=== PATIENT | male | born 1940 | race Caucasian/White ===

== ENCOUNTER 2021-10-14 09:59 | Inpatient (IN) | payer MEDICARE, SELFPAY ==
[2021-10-14] VITALS (23 sets, daily range): BP systolic 84–125; BP diastolic 46–64; PULSE 79–98; RESP 18–32; TEMP 35.9–36.9; O2SAT 88–100; BMI 21.1
--- NOTE | ~2021-10-14 | XR_ITS ---
EXAMINATION: XR chest 1V portable INDICATION: Respiratory distress TECHNIQUE: Portable AP chest at 0522 hours COMPARISON: 10/15/2021 FINDINGS: Small bilateral pleural effusions, right greater than left, persist without significant miguelito nge. There are stable opacities of the mid and lower lung zones. There is no pneumothorax. The cardio mediastinal silhouette is stable. Small pleural effusions, stable. IMPRESSION: 1. Small pleural effusions, stable. 2. Stable opacities of the mid and lower lung zones, consistent with pulmonary edema and/or pneumonia and/or atelectasis. Reviewed, dictated and finalized at location A.
--- NOTE | ~2021-10-14 | CT_ITS ---
EXAMINATION: CT brain wo con INDICATION: Generalized weakness, sepsis COMPARISON: None TECHNIQUE: Standard unenhanced head CT. The dose-length product (DLP) was 681.00 mGy-cm. The mA was a djusted according to patient size. Iterative reconstruction technique was employed. FINDINGS: There is no acute intraparenchymal hemorrhage. No evidence of mass lesion. No evidence of a cute infarction. There is moderate periventricular and subcortical hypodensity probably related to sm all vessel ischemic disease. There is moderate prominence of the sulci and ventricles related to cere bral atrophy. Intracranial calcified cerebral atherosclerosis is noted. There are no extra-axial alex ections. There is no mass effect or midline shift. The orbits and soft tissues are unremarkable. The visualized sinuses and mastoid air cells are well aerated. IMPRESSION: 1. No acute intracranial abnormality. 2. Age related findings. Reviewed, dictated and finalized at location B.
--- NOTE | ~2021-10-14 | US_ITS ---
EXAMINATION: US venous doppler [facility] DATE: 10/15/2021 17:20 INDICATION: Respiratory abnormality, unspecified TECHNIQUE: Murphy scale images without and with compression and Doppler images of the bilateral lower e xtremity veins were obtained. COMPARISON: None FINDINGS: The right common femoral vein, profunda femoral vein, femoral vein, popliteal vein, peroneal trunk, p osterior tibial veins, and greater saphenous vein are patent. The left common femoral vein, profunda femoral vein, femoral vein, popliteal vein, peroneal trunk, po sterior tibial veins, and greater saphenous vein are patent. IMPRESSION: 1. Patent bilateral lower extremity veins. No evidence of deep venous thrombosis. Reviewed, dictated and finalized at location B. IMPRESSION: 1. Patent bilateral lower extremity veins. No evidence of deep venous thrombosi s.
--- NOTE | ~2021-10-14 | XR_ITS ---
EXAMINATION: XR chest 1V portable INDICATION: Hypoxia TECHNIQUE: Portable AP chest at 0525 hours COMPARISON: 10/17/2019 FINDINGS: There are moderate size right and small left pleural effusions. Airspace opacities of the m id and lower lung zones persist without significant change. There is no pneumothorax. The cardiomedia stinal silhouette is stable. IMPRESSION: 1. Moderate size right and small left pleural effusions. 2. Stable airspace opacities of the mid and lower lung zones, consistent with pulmonary edema and/or pneumonia and/or atelectasis. Reviewed, dictated and finalized at location A. IMPRESSION: 1. Moderate size right and small left pleural effusions. 2. Stable airspace opacities of the mid and lower lung zones, consistent with p ulmonary edema and/or pneumonia and/or atelectasis.
--- NOTE | ~2021-10-14 | XR_ITS ---
EXAMINATION: XR barium swallow modified DATE: 10/18/2021 09:17 INDICATION: Dysphagia TECHNIQUE: Modified barium esophagram was performed by myself to administered fluoroscopy, in conjun ction with speech pathologist who administered barium in varying consistencies as per speech patholog ist documentation. This was recorded on tape. A single fluoroscopic spot image was recorded. The DAP for this procedure was 2.5 Gycm2. Fluoroscopy exposure time was 4.0 minutes. FINDINGS: Oral stage: Adequate function. Pharyngeal phase: Adequate function. Laryngeal penetration: Inconsistently present within liquids. Aspiration: None. Laryngeal sensitivity: Present. IMPRESSION: Inconsistent laryngeal penetration with thin liquids. Please refer to speech pathologist findings and specific feeding recommendations. Reviewed, dictated and finalized at location A.
--- NOTE | ~2021-10-14 | XR_ITS ---
EXAMINATION: XR chest 2V DATE: 10/14/2021 10:54 INDICATION: Weakness and shortness of breath TECHNIQUE: AP and lateral views of the chest are obtained. COMPARISON: None available FINDINGS: Cardiomegaly is noted. There is a mild diffuse interstitial pattern. More focal airspace op acities are present in the lung bases. There are small pleural effusions. No pneumothorax is identifi ed. There is mild thoracic spondylosis. IMPRESSION: 1. Cardiomegaly with mild pulmonary edema. 2. Bibasilar airspace opacities, consistent with atelectasis versus pneumonia. 3. Small pleural effusions. Reviewed, dictated and finalized at location B.
--- NOTE | ~2021-10-14 | XR_ITS ---
EXAMINATION: XR chest 1V portable DATE: 10/15/2021 09:47 INDICATION: Respiratory distress TECHNIQUE: frontal view of the chest was obtained. COMPARISON: Chest radiograph dated 10/14/2021 FINDINGS: Again seen are small bilateral pleural effusions with associated basilar atelectasis. Persistent inte rstitial and airspace opacities in the bilateral mid and lower lung zones which could represent assoc iated pulmonary edema or pneumonia. No pneumothorax. The cardiomediastinal silhouette is within roberta l limits accounting for AP technique and some rightward rotation of the patient. Age indeterminate T1 1 compression fracture with mild vertebral body height loss. IMPRESSION: 1. Opacities in the bilateral mid and lower lung zones which could represent pulmonary edema or pneum onia. 2. Small bilateral pleural effusions with associated basilar atelectasis. Reviewed, dictated and finalized at location A. IMPRESSION: 1. Opacities in the bilateral mid and lower lung zones which could represent pu lmonary edema or pneumonia. 2. Small bilateral pleural effusions with associated basilar atelectasis.
--- NOTE | ~2021-10-14 | US_ITS ---
EXAMINATION: US renal BI DATE: 10/15/2021 17:20 INDICATION: Acute kidney injury TECHNIQUE: Multiple grayscale and Doppler ultrasound images of the kidneys were obtained. COMPARISON: None. FINDINGS: The right kidney measures 9.4 x 4.2 x 5.3 cm. The left kidney measures 10.0 x 4.3 x 4.9 cm. The kidneys demonstrate normal parenchymal echogenicity. There is no hydronephrosis. The bladder is decompressed by Newton catheter. IMPRESSION: 1. Normal kidneys without hydronephrosis. Reviewed, dictated and finalized at location B.
--- NOTE | 2021-10-14 10:19 | ECG_ITS ---
Measurements Intervals [place] Rate: 85 P: 57 NC: 140 QRS: -76 QRSD: 91 T: 19 QT: 375 QTc: 446 Interpretive Statements SINUS RHYTHM WITH SINUS ARRHYTHMIA INCOMPLETE RIGHT BUNDLE BRANCH BLOCK LOW QRS VOLTAGE IN LIMB LEADS LEFT ANTERIOR FASCICULAR BLOCK CONSIDER ANTERIOR INFARCT, AGE INDETERMINATE BASELINE ARTIFACT- AVL, AVF ABNORMAL ECG Electronically Signed On 10-14-2021 12:29:02 CDT by Adolfo Damon D.O.
[2021-10-14 10:35] LABS: Appearance Urine Cloudy (Clear); Bilirubin Urine 1+ (Negative); Blood Urine 3+ (Negative); Glucose Urine UA Negative (Negative); Ketones Urine 1+ mg/dL (Negative); Leukocyte Esterase Ur 3+ LEU/UL (Negative); Nitrate Urine Negative (Negative); Protein Urine 2+ mg/dL (Negative); Specific Grav Ur 1.025 (1.001-1.035); Urobilinogen Urine 0.2 mg/dL (<2.0); pH Urine 5.5 (5.0-9.0)
[2021-10-14 10:40] LABS: Add Urine Microscopic? YES; Color Urine Dark Yellow (Yellow)
[2021-10-14 10:44] LABS: Bacteria Urine Trace /hpf; Budding Yeast Urine Present /hpf; Hyaline Casts Urine 50+ /lpf; Mucus Urine Rare /lpf; RBC Urine >75 /hpf (0-2); Squamous Epithelial Cell Urine Moderate /hpf (Few); WBC Clumps Urine Present /HPF; WBC Urine >75 /hpf
[2021-10-14 10:48] LABS: Alanine Aminotransferase 11 U/L (4-50); Albumin Level 2.3 g/dL (3.5-5.1); Alkaline Phosphatase 149 U/L (38-126); Anion Gap 7 mmol/L (8-16); Aspartate Amino Transferase 16 U/L (17-59); Bilirubin,Total 0.7 mg/dL (0.2-1.3); Blood Urea Nitrogen 50 mg/dL (9-20); Calcium 7.3 mg/dL (8.4-10.2); Carbon Dioxide 21 mmol/L (22-30); Chloride 104 mmol/L (98-107); Estimated CRCL calculation 20 ml/min; Estimated Glomerular Filt Rate 25; Glucose 241 mg/dL (65-110); Potassium 4.3 mmol/L (3.4-5.0); Sodium 132 mmol/L (137-145)
--- NOTE | 2021-10-14 10:48 | PC.NURSE ---
ems administered 1L of normal saline.
--- NOTE | 2021-10-14 10:50 | ED.WEAKNESS ---
HPI - Weakness General Chief complaint: Weakness Stated complaint: LETHARGIC AND HYPOTENSIVE Time Seen by Provider: 10/14/21 10:24 Source: patient and family Mode of arrival: EMS Limitations: no limitations History of Present Illness HPI Narrative: Pt has long complex recent medical history. Pt was admitted to [facility] for urosepsis and was in the hospital two weeks, was discharged and fell and was readmitted to [place]. Pt was discharged to [facility] for rehab and had been steadily improving until yesterday when daughter picked him up to go to appointments. Pt was SOB and was very weak and unable to get into car without a lot of assistance and this is all new. Pt denies one sided weakness or CP or fever. Pt has SOB with exertion. Related Data Allergies Allergy/AdvReac Type Severity Reaction Status Date / Time codeine Allergy Unknown Unknown Verified 10/14/21 12:11 Review of Systems Review of Systems: All systems reviewed & are unremarkable except as noted in HPI and below Exam Const: General: no acute distress Orientation/consciousness: patient oriented x3 Eyes: Conjunctivae: conjunctivae normal Pupils: Equal, round and reactive pupils present Neck: Neck: no lymphadenopathy and no meningeal signs Resp: Effort & Inspection: normal respiratory effort Auscultation: crackles bilateral Cardio: Rate: regular rate Rhythm: regular rhythm GI: GI Palp: Yes Soft to palpation Auscultation: normal bowel sounds Skin: Other: pale Neuro: General: patient oriented x3, moves all extremities, no meningeal signs, no focal motor deficits and CN's II-XI intact bilaterally Cranial nerves: Yes Nystagmus not present Speech: normal speech Extrem: General: no clubbing, cyanosis or edema Psych: Mental Status: mental status grossly normal (answers appropriately but very drowsy) Attitude: cooperative Thought content: Yes Normal thought content present Course Vital Signs Vital signs: Vital Signs Temperature 97.6 F 10/14/21 10:09 Pulse Rate 85 10/14/21 10:09 Respiratory Rate 25 H 10/14/21 10:09 Blood Pressure 115/48 L 10/14/21 10:09 Pulse Oximetry 96 10/14/21 10:09 Temperature 97.6 F 10/14/21 10:09 Pulse Rate 79 10/14/21 16:00 Respiratory Rate 22 H 10/14/21 16:00 Blood Pressure 109/61 10/14/21 16:00 Pulse Oximetry 97 10/14/21 16:00 MDM - Weakness Lab Data Result diagrams: 10/14/21 10:27 10/14/21 10:27 Labs: Lab Results 10/14/21 10/14/21 10/14/21 Range/Units 10:27 10:27 10:27 WBC 10.2 H (4.5-10.0) K/mm3 RBC 3.66 L (4.6-6.20) M/mm3 Hgb 10.8 L (14.0-18.0) g/dL Hct 32.5 L (42.0-52.0) % MCV 88.8 (80-100) fl MCH 29.5 (26-34) pg MCHC 33.2 (32-36) g/dl RDW 15.8 H (11.5-14.5) % Plt Count 197 (150-375) k/mm3 MPV 9.6 (7.4-10.4) fl Immature Gran % (Auto) 1.1 H (0-0.5) % Neut % (Auto) 87.5 H (45.5-73.1) % Lymph % (Auto) 3.5 L (18.3-44.2) % [place] % (Auto) 5.3 (2.6-8.5) % Eos % (Auto) 2.3 (0-4.4) % Baso % (Auto) 0.3 (0.2-1.2) % Lymph # (Auto) 0.36 L (0.9-3.2) K/mm3 [place] # (Auto) 0.5 (0.1-0.6) K/mm3 Eos # (Auto) 0.2 (0-0.3) K/mm3 Baso # (Auto) 0.0 (0.0-0.1) K/mm3 Abs Immat Gran (auto) 0.11 H (0.00-0.031) K/mm3 Absolute Neuts (auto) 8.9 H (1.3-6.7) K/mm3 Absolute Nucleated RBC 0.0 (0.0-0.012) K/mm3 Nucleated RBC % 0.0 (0.0-0.2) % PT (11.1-14.7) Seconds INR APTT (22.3-36.8) SECONDS Sodium 132 L (137-145) mmol/L Potassium 4.3 (3.4-5.0) mmol/L Chloride 104 (98-107) mmol/L Carbon Dioxide 21 L (22-30) mmol/L Anion Gap 7 L (8-16) mmol/L BUN 50 H (9-20) mg/dL Creatinine 2.50 H (0.7-1.3) mg/dL Estim Creat Clear Calc 20 ml/min Estimated GFR 25 L (59 - ) Glucose 241 H (65-110) mg/dL Lactic Acid (0.7-2.0) mmol/L Calcium 7.3 L (8.4-10.2) mg/dL Total Bilirubin 0.7 (0.2-1.3) mg/dL
--- NOTE | 2021-10-14 10:51 | PC.NURSE ---
pt in xray at this time.
[2021-10-14 10:58] LABS: Basophils Percent Auto 0.3 % (0.2-1.2); Eosinophils Absolute Auto 0.2 K/mm3 (0-0.3); Eosinophils Percent Auto 2.3 % (0-4.4); Hematocrit 32.5 % (42.0-52.0); Hemoglobin 10.8 g/dL (14.0-18.0); Immature Granulocyte Absolute 0.11 K/mm3 (0.00-0.031); Immature Granulocyte Percent A 1.1 % (0-0.5); Lymphocytes Absolute Auto 0.36 K/mm3 (0.9-3.2); Lymphocytes Percent Auto 3.5 % (18.3-44.2); Mean Corpuscular HGB Conc 33.2 g/dl (32-36); Mean Corpuscular Hemoglobin 29.5 pg (26-34); Mean Corpuscular Volume 88.8 fl (80-100); Mean Platelet Volume 9.6 fl (7.4-10.4); Monocytes Absolute Auto 0.5 K/mm3 (0.1-0.6); Monocytes Percent Auto 5.3 % (2.6-8.5); Neutrophils Absolute Auto 8.9 K/mm3 (1.3-6.7); Neutrophils Percent Auto 87.5 % (45.5-73.1); Platelet Count Result 197 k/mm3 (150-375); Red Blood Count 3.66 M/mm3 (4.6-6.20); Red Cell Distribution Width 15.8 % (11.5-14.5); White Blood Count 10.2 K/mm3 (4.5-10.0)
[2021-10-14 11:27] LABS: Lactic Acid Reflex 2.4 mmol/L (0.7-2.0)
[2021-10-14 11:29] LABS: INR 1.2; Prothrombin Time 15.2 Seconds (11.1-14.7)
[2021-10-14 11:30] LABS: Partial Thromboplastin Time 23.5 SECONDS (22.3-36.8)
[2021-10-14 11:42] LABS: NT Pro B Type Natriuretic Pept 3180 pg/mL (5-100); Troponin I 0.027 ng/mL (0.000-0.034)
[2021-10-14 12:01] LABS: SARS-CoV-2 RNA PCR Negative
[2021-10-14 12:13] LABS: Troponin I 0.034 ng/mL (0.000-0.034)
[2021-10-14 14:14] LABS: Reflex Lactic Acid Yes or No Add Lactic
[2021-10-14] MEDS: cefTRIAXone 2 GM in SODIUM CHLORIDE 0.9% IV 100 ML 200 ML IVPB (14:31)
[2021-10-14 15:00] LABS: Lactic Acid 1.7 mmol/L (0.7-2.0)
--- NOTE | 2021-10-14 17:13 | ADMGEN ---
This patient, Gianni Bynum, was admitted to IMU Room 201-01. Patient/family oriented to hospital policies and general routines including ID bracelet, bed and alarms, visiting hours, pain management, procedures, bathroom and other care routines, personal items, smoking policy, room service/diet, and visiting hours. Information on how to activate the Rapid Response Team has been discussed. Patient/Family are encouraged to report perceived risks to care and to ask questions if they do not understand what they are told or what they should do.
[2021-10-14 18:52] LABS: Troponin I 0.028 ng/mL (0.000-0.034)
--- NOTE | 2021-10-14 20:22 | PM.IMHP ---
H&P: HPI History of Present Illness Date/Time: 10/14/21 20:22 Chief Complaint: Shortness of breath. Narrative: This is an 80-year-old male with past medical history significant for recent admission to the hospital for urinary tract infection sepsis patient has been in and out of the hospital in the recent past and just just discharged and placed in rehabilitation facility where he has been working with physical therapy and occupational therapy today daughter came in to picking up for follow-up appointments and noticed that he was a very very weak requiring lot of assistance and short of breath as well was brought to the emergency room for evaluation. Patient can not really give much history his states that he had a fall but there was no loss of consciousness he denies any pain at the present time. Preliminary workup was significant for lung infiltrates elevated brain natriuretic peptide elevated creatinine at 2.5. Patient has been admitted for further evaluation, management and treatment. Review of Systems Review of Systems: Patient can not really give much history he states that he had a fall and is weak. PMFSH Social History Social History Smoking status: Former smoker Alcohol intake: current Drinks per week: 7 Substance use: never Spiritual care concerns: No Meds Home Medications and Allergies Home Medications Medication Instructions Recorded Confirmed Type aspirin [Adult Aspirin EC Low 81 mg PO DAILY 10/14/21 10/14/21 History Strength] atorvastatin 40 mg PO HS 10/14/21 10/14/21 History carvedilol 6.25 mg PO Q12H 10/14/21 10/14/21 History cyclobenzaprine 10 mg PO TID PRN 10/14/21 10/14/21 History insulin aspart U-100 [Novolog 10 unit SUBCUT TIDWM 10/14/21 10/14/21 History U-100 Insulin aspart] insulin degludec [Tresiba U-100 12 unit SUBCUT HS 10/14/21 10/14/21 History Insulin] levothyroxine 88 mcg PO DAILY 10/14/21 10/14/21 History linagliptin [Tradjenta] 5 mg PO DAILY 10/14/21 10/14/21 History lisinopril 10 mg PO DAILY 10/14/21 10/14/21 History naproxen [Naprosyn] 500 mg PO BID PRN 10/14/21 10/14/21 History tamsulosin 0.8 mg PO DAILY 10/14/21 10/14/21 History Allergies Allergy/AdvReac Type Severity Reaction Status Date / Time codeine Allergy Unknown Unknown Verified 10/14/21 12:11 Vital Signs Vital Signs - 24 hr 10/14/21 10:09 10/14/21 10:10 10/14/21 10:16 Temperature 97.6 F Pulse Rate 85 84 Respiratory Rate 25 H 25 H Blood Pressure 115/48 L Pulse Oximetry 96 96 94 10/14/21 10:17 10/14/21 10:30 10/14/21 10:58 Temperature Pulse Rate 85 85 Respiratory Rate 26 H 29 H Blood Pressure 117/46 L Pulse Oximetry 100 94 97 10/14/21 11:00 10/14/21 11:01 10/14/21 12:11 Temperature Pulse Rate 88 85 88 Respiratory Rate 32 H 32 H 27 H Blood Pressure 97/48 L 99/49 L 91/46 L Pulse Oximetry 90 92 97 10/14/21 13:56 10/14/21 13:57 10/14/21 15:08 Temperature Pulse Rate 84 Respiratory Rate 30 H Blood Pressure 104/49 L Pulse Oximetry 95 94 88 L 10/14/21 15:09 10/14/21 16:00 10/14/21 17:00 Temperature Pulse Rate 79 87 Respiratory Rate 22 H 24 H Blood Pressure 109/61 114/61 Pulse Oximetry 93 97 96 10/14/21 17:13 10/14/21 17:27 10/14/21 17:34 Temperature 98.5 F Pulse Rate 83 82 Respiratory Rate 18 Blood Pressure 125/64 Pulse Oximetry 97 97 10/14/21 18:00 10/14/21 20:00 10/14/21 20:01 Temperature 98.1 F Pulse Rate 85 98 Respiratory Rate 24 H Blood Pressure 84/55 L 118/48 L Pulse Oximetry 96 Exam Narrative: Patient is laying in bed. Const: General: cooperative, comfortable, no acute distress, well developed, alert, awake and ill appearing Nutritional Appearance: underweight Orientation/consciousness: oriented to person and oriented to place HENMT: Head: normal to inspection, normocephalic and atraumatic Ears: hearing grossly normal bilaterally General nose exam: Normal external nose present Face and sin
[2021-10-15] VITALS (38 sets, daily range): BP systolic 70–151; BP diastolic 47–109; PULSE 89–118; RESP 23–38; TEMP 35.7–36.7; O2SAT 93–100; BMI 21.1
[2021-10-15] MEDS: ALBUTEROL SULFATE NEB 2.5 MG/3 ML INH 1.25 MG INHALATION (01:48)
[2021-10-15] MEDS: IPRATROPIUM BR 0.02% INH SOLN 0.5 MG/2.5 ML VIAL INHALATION ×7 (01:49→23:29)
[2021-10-15 03:54] LABS: Glucose Point of Care 465 mg/dl (65-105)
[2021-10-15] MEDS: ALBUTEROL SULFATE NEB 2.5 MG/0.5 ML INH INHALATION ×6 (04:48→23:29)
[2021-10-15 04:53] LABS: Alveolar/Arterial O2 Gradient 212.2 mmHg; Base Excess ABG -9.1 mEq/l (+/-2.0); Fractional Inspired Oxygen 44 %; HCO3 ABG 15.5 mEq/l (22.0-26.0); Oxygen Content ABG 16.8 %vol (16.0-22.0); Oxygen Saturation ABG 92.5 % (95.0-100.0); PO2 ABG 67.3 mmHg (80.0-100.0); PO2 FiO2 Ratio Arterial Blood 1.53 %; Total Hemoglobin 13.1 g/dL (12.0-18.0)
[2021-10-15 04:54] LABS: Device HIGH FLOW NASAL CANN; Modified Allen's Test Unable to perform; Site Drawn RIGHT BRACHIAL
[2021-10-15] MEDS: SODIUM CHLORIDE 0.9% IV 500 ML IV CONT (06:32)
[2021-10-15] MEDS: INSULIN ASPART (*BKC) 100 UNITS/ML 8 UNITS SUB-Q (06:32)
[2021-10-15] MEDS: LEVOTHYROXINE SODIUM 88 MCG TABLET PO (06:33)
[2021-10-15 08:33] LABS: Glucose Point of Care 500 mg/dl (65-105)
[2021-10-15 08:34] LABS: Albumin Level 2.5 g/dL (3.5-5.1); Anion Gap 16 mmol/L (8-16); Blood Urea Nitrogen 74 mg/dL (9-20); Calcium 7.8 mg/dL (8.4-10.2); Carbon Dioxide 13 mmol/L (22-30); Chloride 101 mmol/L (98-107); Estimated CRCL calculation 13 ml/min; Estimated Glomerular Filt Rate 16; Glucose 454 mg/dL (65-110); Magnesium 2.2 mg/dL (1.6-2.3); Phosphorus 6.3 mg/dL (2.5-4.5); Potassium 5.3 mmol/L (3.4-5.0); Sodium 130 mmol/L (137-145)
--- NOTE | 2021-10-15 08:43 | PM.IMPN ---
Progress Note: A&P Assessment and Plan (1) Altered mental status: Code(s): R41.82 - Altered mental status, unspecified Status: Acute Assessment and Plan: Called the room because patient less responsive. Spoke with family. They are not fully aware of patient's medical problems but states that he does not have Parkinson's or dementia. Patient noted to be more acidotic with a non gap metabolic acidosis probably related to renal failure. So consider uremia has etiology of his mental status changes. Consider also CVA or possibly sepsis from UTI and/or pneumonia. Blood cultures are no growth today. He remains on broad-spectrum IV antibiotics. Will repeat chest x-ray. Check ABG. Will start IV fluids with bicarb. Nephrology consult. Check ammonia level, TSH and B12. Check lactic acid. Will check CT of the brain. Will obtain old records. 36 minutes spent on critical care time (2) Acute respiratory failure: Code(s): J96.00 - Acute respiratory failure, unspecified whether with hypoxia or hypercapnia Status: Acute Assessment and Plan: Blood gas earlier this morning showed 7. on 6 L high-flow. Patient has since been placed on BiPAP. Most likely acute respiratory failure related to pneumonia. Cannot exclude fluid overload from oliguric renal failure. Cannot exclude PE although other diagnoses more likely. Will check chest x-ray and ABG. Check lower extremity venous Dopplers. (3) Healthcare-associated pneumonia: Code(s): J18.9 - Pneumonia, unspecified organism Status: Acute Assessment and Plan: Patient presents with weakness. Found to have respiratory distress. Chest x-ray shows cardiomegaly and mild pulmonary edema. Also with bibasilar airspace opacities atelectasis versus pneumonia. No fevers but white count elevated. Unclear if he has a cough but no mention in the ED her admitting notes. Patient has been started on vancomycin cefepime and Zithromax Cultures in progress. Continue the same. (4) Acute kidney injury: Code(s): N17.9 - Acute kidney failure, unspecified Status: Acute Assessment and Plan: Unknown baseline creatinine. Patient does have diabetes and hypertension so would suspect underlying CKD. Naproxen and lisinopril were held on admission. Creatinine much worse today with a metabolic non gap acidosis. Urine output is poor. Will check lactic acid level. Will check beta hydroxybutyrate. Start IV fluids with bicarb. Nephrology consult. Check renal ultrasound. Check urine electrolytes. (5) Acute exacerbation of congestive heart failure: Code(s): I50.9 - Heart failure, unspecified Status: Acute Assessment and Plan: Patient to BNP was 3000. Chest x-ray as mentioned above. Patient may have CHF exacerbation or possibly fluid overload from oliguric renal failure. Patient has not received diuretics since admission. Monitor closely on fluids. (6) Acute UTI: Code(s): N39.0 - Urinary tract infection, site not specified Status: Acute Assessment and Plan: UA noted. Follow-up on urine and blood cultures. Continue broad-spectrum IV antibiotics. (7) Diabetes mellitus: Code(s): E11.9 - Type 2 diabetes mellitus without complications Status: Acute Assessment and Plan: The patient's blood glucose was reviewed on 10/15 Glucose is poorly controlled. Lantus has been resumed. Make patient NPO. Start AccuCheks covering with sliding scale. Hypoglycemia protocol will be available as needed. Lantus x1 this morning. Check beta hydroxybutyrate level to exclude DKA. (8) Muscular deconditioning: Code(s): R29.898 - Other symptoms and signs involving the musculoskeletal system Status: Acute Assessment and Plan: PT OT when able. (9) Chronic indwelling Newton catheter: Code(s): Z97.8 - Presence of other specified devices Status: Acute Asses
[2021-10-15 08:50] LABS: Basophils Percent Auto 0.2 % (0.2-1.2); Eosinophils Percent Auto 0.1 % (0-4.4); Hematocrit 35.8 % (42.0-52.0); Hemoglobin 11.8 g/dL (14.0-18.0); Immature Granulocyte Absolute 0.23 K/mm3 (0.00-0.031); Immature Granulocyte Percent A 1.4 % (0-0.5); Lymphocytes Absolute Auto 0.63 K/mm3 (0.9-3.2); Mean Corpuscular Hemoglobin 29.7 pg (26-34); Mean Corpuscular Volume 90.2 fl (80-100); Mean Platelet Volume 10.1 fl (7.4-10.4); Monocytes Absolute Auto 0.5 K/mm3 (0.1-0.6); Monocytes Percent Auto 3.3 % (2.6-8.5); Neutrophils Absolute Auto 14.5 K/mm3 (1.3-6.7); Platelet Count Result 197 k/mm3 (150-375); Red Blood Count 3.97 M/mm3 (4.6-6.20); Red Cell Distribution Width 16.2 % (11.5-14.5); White Blood Count 15.9 K/mm3 (4.5-10.0)
[2021-10-15] MEDS: INSULIN ASPART (*BKC) 100 UNITS/ML 10 UNITS SUB-Q (09:20)
--- NOTE | 2021-10-15 09:49 | PM.CNNEP ---
Assessment and Plan Additional Plan 1. Gianni has acute kidney injury. It is not clear what his baseline creatinine but his creatinine has risen since admission. kidney disease is not in the list of his past illness according to what the daughter told Dr. Clark. The patient looks fairly ill. He has acidosis, somnolence, tachypnea, and weakness. He could have sepsis causing all of the above plus the renal failure. He could have obstruction. We will check a renal ultrasound. He has a Newton in. He could have passed a kidney stone and have an infection behind that leading to sepsis. He could have infection from some other source as well and the sepsis cause the renal failure. He has been in 2 different hospitals with multiple antibiotics so could have interstitial nephritis, however he does not have a rash he does not have peripheral eosinophilia so I think this is less likely. Rhabdomyolysis is a possibility. We can check a CPK. The patient's volume status seems fairly good or possibly dry on exam. I do not think he has [facility] the [facility]. However his chest x-ray reading did mention pulmonary edema but looking at the chest x-ray it does not seem that impressive to me. I suspect that his tachypnea is on the basis of his metabolic acidosis. Will check urine electrolytes, renal sonogram, CPK. Will give some IV fluids with bicarb. 2. Patient has hypertension. Blood pressure is doing okay 3. The patient has diabetes. She is on Accu-Cheks and sliding-scale insulin. 4. The patient has pyuria. Cultures are pending and he is on antibiotics. 5. The patient has metabolic acidosis. The anion gap is 16. His albumin is low. So he does have a delta anion gap. Possibly due to the lactate but also possibly due to uremic toxins. The delta anion gap is about 8 and a delta bicarb is about 12 so he may have a component of non-anion gap metabolic acidosis possibly from the renal insufficiency. There is no history of diarrhea so far. History of Present Illness Reason for Consult Consult date: 10/15/21 Chief Complaint Chief complaint: UTI/Pneumonia History of Present Illness Narrative: Gianni is a very pleasant but ill-looking 80-year-old gentleman who has hypertension, diabetes, BPH, insomnia, kidney stones, and constipation. The patient had a stay at [facility] recently and also had a stay at [facility] recently. After the [facility] admission [facility] a [facility] for recovery then got sick and was brought here because of shortness of breath. The other hospital stays dealt with UTI at some point but we do not have any records. There is no mention of past history of kidney disease in the chart so far. He was evaluated in the emergency room and found to have a metabolic acidosis, hematuria pyuria, elevated creatinine, elevated white count, anemia. He was placed on antibiotics and is has been observed. He was short of breath and so was placed on a BiPAP mask. He is still somewhat tachypneic similar to Kussmaul breathing. He has blood gases showing metabolic acidosis with appropriate respiratory compensation. The patient can not give much of a history. He nods his head yes and no occasionally but tires easily. Does not seem to have any belly pain. Review of Systems Review of Systems: ROS unobtainable: Yes unobtainable due to medical condition PMFSH Past Medical History Medical History Diabetes mellitus Social History Social History Smoking status: Former smoker Alcohol intake: current Drinks per week: 7 Substance use: never Spiritual care concerns: No Meds Home Medications and Allergies Home Medications Medication Instructions Recorded Confirmed Type aspirin [Adult Aspirin EC Low 81 mg PO DAILY 10/14/21 10/14/21 History Strength] atorvastatin 40 mg PO HS 10/14/21 10/14/21 His
[2021-10-15] MEDS: INSULIN GLARGINE (*BKC) 100 UNITS/ML 8 UNITS SUB-Q (09:58)
[2021-10-15 10:22] LABS: Base Excess ABG -6.2 mEq/l (+/-2.0); Fractional Inspired Oxygen 60 %; HCO3 ABG 17.2 mEq/l (22.0-26.0); Oxygen Content ABG 17.5 %vol (16.0-22.0); Oxygen Saturation ABG 97.4 % (95.0-100.0); Oxyhemoglobin 96.4 % THb (90.0-100.0); PCO2 ABG 28.6 mmHg (35.0-45.0); PO2 ABG 96.3 mmHg (80.0-100.0); PO2 FiO2 Ratio Arterial Blood 1.61 %; Total Hemoglobin 12.8 g/dL (12.0-18.0); pH ABG 7.398 (7.350-7.450)
[2021-10-15 10:24] LABS: Site Drawn LEFT BRACHIAL
[2021-10-15 10:25] LABS: Device NON-INVASIVE VENT
[2021-10-15 10:26] LABS: Non-Invasive Expiratory Pressure 5 CMH2O; Non-Invasive Inspiratory Pressure 10 CMH2O; Non-Invasive Vent Rate 12 /MIN
[2021-10-15 10:40] LABS: Hemoglobin A1C 7.1 % (<5.7)
[2021-10-15 10:44] LABS: Creatine Kinase 33 U/L (55-170); Lactic Acid Reflex 3.1 mmol/L (0.7-2.0)
[2021-10-15 10:45] LABS: Ammonia < 9 umol/L (9-30)
[2021-10-15 10:45] LABS: Alanine Aminotransferase 13 U/L (4-50); Albumin Level 2.7 g/dL (3.5-5.1); Alkaline Phosphatase 162 U/L (38-126); Aspartate Amino Transferase 18 U/L (17-59); Bilirubin,Total 0.7 mg/dL (0.2-1.3)
[2021-10-15 10:50] LABS: Beta-Hydroxybutyrate/Acetoacetate 1.16 mmol/L (0.02-0.27)
[2021-10-15] MEDS: SODIUM BICARBONATE 8.4% 150 MEQ in WATER, STERILE FOR INJECTION 950 ML 75 MEQ IV CONT (10:55)
[2021-10-15 11:01] LABS: Procalcitonin 17.5 ng/mL
[2021-10-15 11:16] LABS: Thyroid Stimulating Hormone Reflex 0.198 uIU/mL (0.465-4.68)
[2021-10-15 11:44] LABS: Glucose Point of Care 364 mg/dl (65-105)
[2021-10-15 11:54] LABS: Free T4 Free Thyroxine Reflex 1.25 ng/dL (0.78-2.19)
[2021-10-15] MEDS: INSULIN ASPART (*BKC) 100 UNITS/ML SUB-Q (11:56)
[2021-10-15 12:46] LABS: Total Triiodothyronine (T3) 0.44 NG/ML (0.97-1.69)
[2021-10-15 13:30] LABS: Reflex Lactic Acid Yes or No Add Lactic
[2021-10-15 14:26] LABS: Lactic Acid 3.4 mmol/L (0.7-2.0)
[2021-10-15 17:17] LABS: Eosinophil Urine None Seen % (None Seen); Total Protein Urine Random 134 mg/dL; Ur Ttl Prot Creatinine Ratio 0.55 mg/mg (0-0.20)
[2021-10-15 17:19] LABS: Influenza Control Positive
[2021-10-15 17:22] LABS: Sodium Urine Random 47 meq/L
[2021-10-15 17:56] LABS: Glucose Point of Care 164 mg/dl (65-105)
--- NOTE | 2021-10-15 18:01 | PC.NURSE ---
Spoke with YOLY Cochran via telephone. Pt changed his code status at [facility] to DNR when he was A&OX4. Suzan agrees to changing pt's code status to DNR. NATALIO Darden verified code status.
[2021-10-15 18:02] LABS: Creatinine Urine 239.8 mg/dL
[2021-10-15 18:05] LABS: Potassium Urine Random 75.2 meq/L; Sodium Urine Random 47 meq/L
[2021-10-15 21:07] LABS: Glucose Point of Care 252 mg/dl (65-105)
[2021-10-15] MEDS: INSULIN GLARGINE (*BKC) 100 UNITS/ML 6 UNITS SUB-Q (21:31)
[2021-10-16] VITALS (24 sets, daily range): BP systolic 110–145; BP diastolic 54–83; PULSE 89–110; RESP 22–31; TEMP 36.3–37.1; O2SAT 92–100
[2021-10-16] MEDS: SODIUM BICARBONATE 8.4% 150 MEQ in WATER, STERILE FOR INJECTION 950 ML 75 MEQ IV CONT ×2 (02:51→18:21)
[2021-10-16] MEDS: ALBUTEROL SULFATE NEB 2.5 MG/0.5 ML INH INHALATION ×6 (04:22→23:30)
[2021-10-16] MEDS: IPRATROPIUM BR 0.02% INH SOLN 0.5 MG/2.5 ML VIAL INHALATION ×6 (04:23→23:30)
[2021-10-16 05:07] LABS: Base Excess ABG -4.2 mEq/l (+/-2.0); Fractional Inspired Oxygen 60 %; HCO3 ABG 19.7 mEq/l (22.0-26.0); Oxygen Content ABG 17.4 %vol (16.0-22.0); Oxygen Saturation ABG 97.4 % (95.0-100.0); PCO2 ABG 32.8 mmHg (35.0-45.0); PO2 ABG 95.7 mmHg (80.0-100.0); PO2 FiO2 Ratio Arterial Blood 1.59 %; Total Hemoglobin 12.8 g/dL (12.0-18.0); pH ABG 7.397 (7.350-7.450)
[2021-10-16 05:10] LABS: Device NON-INVASIVE VENT; Modified Allen's Test Pass; Non-Invasive Vent Rate 12 /MIN; Site Drawn RIGHT RADIAL
[2021-10-16 05:11] LABS: Non-Invasive Expiratory Pressure 5 CMH2O; Non-Invasive Inspiratory Pressure 10 CMH2O
[2021-10-16 05:42] LABS: Alanine Aminotransferase 10 U/L (4-50); Albumin Level 2.6 g/dL (3.5-5.1); Alkaline Phosphatase 170 U/L (38-126); Anion Gap 11 mmol/L (8-16); Aspartate Amino Transferase 14 U/L (17-59); Blood Urea Nitrogen 93 mg/dL (9-20); Calcium 7.8 mg/dL (8.4-10.2); Carbon Dioxide 22 mmol/L (22-30); Chloride 97 mmol/L (98-107); Estimated CRCL calculation 11 ml/min; Estimated Glomerular Filt Rate 12; Glucose 350 mg/dL (65-110); Magnesium 2.3 mg/dL (1.6-2.3); Potassium 5.4 mmol/L (3.4-5.0); Sodium 130 mmol/L (137-145)
[2021-10-16 06:19] LABS: Basophils Percent Auto 0.2 % (0.2-1.2); Eosinophils Absolute Auto 0.1 K/mm3 (0-0.3); Eosinophils Percent Auto 0.3 % (0-4.4); Hematocrit 35.4 % (42.0-52.0); Hemoglobin 12.5 g/dL (14.0-18.0); Immature Granulocyte Absolute 0.33 K/mm3 (0.00-0.031); Immature Granulocyte Percent A 1.9 % (0-0.5); Lymphocytes Absolute Auto 0.94 K/mm3 (0.9-3.2); Lymphocytes Percent Auto 5.4 % (18.3-44.2); Mean Corpuscular HGB Conc 35.3 g/dl (32-36); Mean Corpuscular Hemoglobin 30.6 pg (26-34); Mean Corpuscular Volume 86.6 fl (80-100); Mean Platelet Volume 9.5 fl (7.4-10.4); Monocytes Absolute Auto 0.8 K/mm3 (0.1-0.6); Monocytes Percent Auto 4.6 % (2.6-8.5); Neutrophils Absolute Auto 15.1 K/mm3 (1.3-6.7); Neutrophils Percent Auto 87.6 % (45.5-73.1); Platelet Count Result 201 k/mm3 (150-375); Red Blood Count 4.09 M/mm3 (4.6-6.20); Red Cell Distribution Width 16.3 % (11.5-14.5); White Blood Count 17.3 K/mm3 (4.5-10.0)
[2021-10-16] MEDS: INSULIN ASPART (*BKC) 100 UNITS/ML SUB-Q ×3 (06:27→18:22)
--- NOTE | 2021-10-16 12:29 | P.PNNP_ITS ---
Progress Note: A&P Assessment and Plan (1) Acute kidney injury: Code(s): N17.9 - Acute kidney failure, unspecified Status: Acute Assessment and Plan: * OSH labs reviewed - admitted to [facility] in August 2021 with EDUARDO with discharge creatinine 1.02mg/d * records indicate a combination of ATN from hypotension and obstruction to blame for EDUARDO * creatinine worse and associated with poor urine output and rising K+ * evaluation to date: * renal ultrasound normal * urine electrolytes suggest prerenal azotemia * urine eosinophils negative * mild proteinuria * suspect due to infection [UTI + bacteremia(?) + pneumonia], relative hypotension and concurrent use of EILEEN-I/NSAIDs * follow trend of repeat labs and UOP (2) Altered mental status: Code(s): R41.82 - Altered mental status, unspecified Status: Acute Assessment and Plan: * possibly related to EDUARDO +/- uremia * infection may be playing a role as well * follow trend of mentation with current interventions (3) Healthcare-associated pneumonia: Code(s): J18.9 - Pneumonia, unspecified organism Status: Acute Assessment and Plan: * suggested by admission imaging * on IV antibioitcs * follow culture date (4) Acute UTI: Code(s): N39.0 - Urinary tract infection, site not specified Status: Acute Assessment and Plan: * urine culture with Pseudomonas * on antibiotics (5) Hypertension: Code(s): I10 - Essential (primary) hypertension Status: Chronic Assessment and Plan: * reasonable control * follow trend of hemodynamics (6) Diabetes mellitus: Code(s): E11.9 - Type 2 diabetes mellitus without complications Status: Chronic Assessment and Plan: * follow accuchecks * on SSI and Lantus Will continue to follow. Subjective Date/time seen: 10/16/21 12:29 Chart reviewed - assuming care from Dr. Ross; does not really look at me and remains non-verbal at the time of my visit; renal function a bit worse with rising potassium; remains on bicarb IVFs; no apparent distress; no events overnight or earlier this AM. Exam Narrative: General: ill appearing male in NAD (getting breathing treatment when seen) Heart: normal S1 and S2; no rub Lungs: clear anteriorly, decreased at bases Abdomen: soft, nontender, nondistended, positive bowel sounds Extremities: no cyanosis or clubbing; no edema Skin: warm and dry Objective Data Vital Signs Vital Signs: Vital Signs Temp Pulse Resp BP Pulse Ox 10/16/21 11:46 100 26 H 10/16/21 10:00 99 93 10/16/21 09:18 108 H 26 H 10/16/21 09:06 96 10/16/21 09:03 106 H 26 H 10/16/21 08:00 37.1 C 99 26 H 144/83 H 96 10/16/21 05:18 103 H 28 H 97 10/16/21 04:45 103 H 29 H 10/16/21 04:35 97 28 H 10/16/21 04:00 36.6 C 103 H 28 H 145/71 H 98 10/16/21 02:17 99 31 H 95 10/16/21 00:00 108 H 10/15/21 23:32 95 24 H 10/15/21 23:30 100 10/15/21 23:25 93 23 H 10/15/21 23:15 100 23 H 95 10/15/21 23:09 36.5 C 89 35 H 114/58 L 99 10/15/21 20:10 100 28 H 10/15/21 20:00 36.7 C 103 H 31 H 98/56 L 100 10/15/21 19:59 106 H 28 H 96
--- NOTE | 2021-10-16 12:29 | PM.PNNEP ---
Progress Note: A&P Assessment and Plan (1) Acute kidney injury: Code(s): N17.9 - Acute kidney failure, unspecified Status: Acute Assessment and Plan: OSH labs reviewed - admitted to [facility] in August 2021 with EDUARDO with discharge creatinine 1.02mg/d records indicate a combination of ATN from hypotension and obstruction to blame for EDUARDO creatinine worse and associated with poor urine output and rising K+ evaluation to date: renal ultrasound normal urine electrolytes suggest prerenal azotemia urine eosinophils negative mild proteinuria suspect due to infection [UTI + bacteremia(?) + pneumonia], relative hypotension and concurrent use of EILEEN-I/NSAIDs follow trend of repeat labs and UOP (2) Altered mental status: Code(s): R41.82 - Altered mental status, unspecified Status: Acute Assessment and Plan: possibly related to EDUARDO +/- uremia infection may be playing a role as well follow trend of mentation with current interventions (3) Healthcare-associated pneumonia: Code(s): J18.9 - Pneumonia, unspecified organism Status: Acute Assessment and Plan: suggested by admission imaging on IV antibioitcs follow culture date (4) Acute UTI: Code(s): N39.0 - Urinary tract infection, site not specified Status: Acute Assessment and Plan: urine culture with Pseudomonas on antibiotics (5) Hypertension: Code(s): I10 - Essential (primary) hypertension Status: Chronic Assessment and Plan: reasonable control follow trend of hemodynamics (6) Diabetes mellitus: Code(s): E11.9 - Type 2 diabetes mellitus without complications Status: Chronic Assessment and Plan: follow accuchecks on SSI and Lantus Will continue to follow. Subjective Date/time seen: 10/16/21 12:29 Chart reviewed - assuming care from Dr. Ross; does not really look at me and remains non-verbal at the time of my visit; renal function a bit worse with rising potassium; remains on bicarb IVFs; no apparent distress; no events overnight or earlier this AM. Exam Narrative: General: ill appearing male in NAD (getting breathing treatment when seen) Heart: normal S1 and S2; no rub Lungs: clear anteriorly, decreased at bases Abdomen: soft, nontender, nondistended, positive bowel sounds Extremities: no cyanosis or clubbing; no edema Skin: warm and dry Objective Data Vital Signs Vital Signs: Vital Signs Temp Pulse Resp BP Pulse Ox 10/16/21 11:46 100 26 H 10/16/21 10:00 99 93 10/16/21 09:18 108 H 26 H 10/16/21 09:06 96 10/16/21 09:03 106 H 26 H 10/16/21 08:00 37.1 C 99 26 H 144/83 H 96 10/16/21 05:18 103 H 28 H 97 10/16/21 04:45 103 H 29 H 10/16/21 04:35 97 28 H 10/16/21 04:00 36.6 C 103 H 28 H 145/71 H 98 10/16/21 02:17 99 31 H 95 10/16/21 00:00 108 H 10/15/21 23:32 95 24 H 10/15/21 23:30 100 10/15/21 23:25 93 23 H 10/15/21 23:15 100 23 H 95 10/15/21 23:09 36.5 C 89 35 H 114/58 L 99 10/15/21 20:10 100 28 H 10/15/21 20:00 36.7 C 103 H 31 H 98/56 L 100 10/15/21 19:59 106 H 28 H 96 10/15/21 19:58 106 H 29 H 96 10/15/21 19:54 106 H 28 H 10/15/21 18:00 96 10/15/21 17:30 134/76 10/15/21 16:48 36.2 C L 106 H 34 H 89/53 L 100 10/15/21 16:43 106 H 31 H 97 10/15/21 16:00 105 H 100 10/15/21 15:55 108 H 30 H 10/15/21 15:39 109 H 32 H 10/15/21 14:00 112 H 10/15/21 12:45 105 H 28 H Intake/Output Intake/Output: Intake & Output 10/13/21 10/14/21 10/15/21 10/16/21 23:59 23:59 23:59 23:59 Intake Total 245 157 7994 Output Total 200 225 150 Balance 507 731 8852 Meds/Results Medications: Active Medications Generic Name Dose Route Start Last Admin Trade Name Freq PRN Reason Stop Dose Admin Albuterol 2.
[2021-10-16 12:56] LABS: Glucose Point of Care 350 mg/dl (65-105)
--- NOTE | 2021-10-16 16:51 | PM.IMPN ---
Progress Note: A&P Assessment and Plan (1) Hypertension: Code(s): I10 - Essential (primary) hypertension Status: Acute (2) Diabetes mellitus: Code(s): E11.9 - Type 2 diabetes mellitus without complications Status: Acute (3) Acute respiratory failure: Code(s): J96.00 - Acute respiratory failure, unspecified whether with hypoxia or hypercapnia Status: Acute (4) Acute kidney injury: Code(s): N17.9 - Acute kidney failure, unspecified Status: Acute (5) DVT prophylaxis: Code(s): Z29.9 - Encounter for prophylactic measures, unspecified Status: Acute (6) Altered mental status: Code(s): R41.82 - Altered mental status, unspecified Status: Acute Additional Plan # acute kidney injury # uremic encephalopathy - unclear etiology, patient has had history with urinary retention and was planning on having bladder stimulation procedure with Urology as per family after 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 Newton catheter appears to be flushing - patient has history of diabetes was may be playing a role for last 20 years - patient has had different medications over last couple months and may have AIN as well - patient has poor p.o. intake and may have prerenal component - patient likely has uremic encephalopathy with BUN 90s, holding off on dialysis as patient is making urine. - appreciate Nephrology consult recommendations - patient does not appear to be hypercarbic, no indication for bipap at this time - creatinine significant elevated 4.6 - Newton catheter in place monitoring strict I/Os - holding home Aleve and lisinopril with kidney injury # electrolyte disturbances -Likely secondary to renal failure - will continue monitor closely hyponatremia, hypochloremia, hyper kalemia # sepsis - persistent leukocytosis 17.3, patient is encephalopathic will continue broad-spectrum antibiotics. aspiration? With his uremia -antibiotics: Azithromycin, cefepime, vancomycin - continue bicarb drip, pH appears to be stabilized, will defer to Nephrology - blood cultures pending - BP appears stable, heart rate slightly tachycardic on 102-105 # acute hypoxic respiratory failure -unclear etiology, currently on 4 L oxygen by nasal cannula # hyperglycemia # type 2 diabetes - Accu-Cheks a.cSherry HS, sliding scale insulin, glargine 6 units q.h.s., hemoglobin A1c 7.1 on 10/15/21 # other chronic conditions - hyperlipidemia: Lipitor - holding home aspirin, Coreg -hypothyroidism: Synthroid - BPH: Flomax Diet: NPO DVT prophylaxis: SCD Code status: do not resuscitate Disposition: continue in IMU Social: and son updated bedside 10/16 Time Spent With Patient Time with patient: 25 - 35 minutes Subjective Date/time seen: 10/16/21 16:51 Patient seen examined. Appears still to be uremic, not conversing. Family updated bedside including and son. will continue working up the acute renal failure. Renal ultrasound and urine studies ordered. Creatinine is elevated at 4.6. Patient has had longstanding diabetes hemoglobin A1c 7.1. He has had issues with urinary retention after some injury from T11-L3, scheduled to have urologic procedure likely bladder stimulator. Patient is not growing Pseudomonas and urinary tract which is sensitive to cefepime. Discussed with family that patient is still making urine and we can hold off on dialysis. Family does not want any aggressive measures at this time. Patient is listed as DNR. Potassium elevated at 5.4, cnc machine programmer following. We are continue sliding scale insulin for the hyperglycemia. Patient is on bicarb drip which is in sterile water as opposed to D5W. pH stable 7.397. Review of Systems Review of Systems: ROS unobtainable: Yes unobtainab
[2021-10-16 18:05] LABS: Glucose Point of Care 317 mg/dl (65-105)
[2021-10-16 18:18] LABS: Albumin Level 2.4 g/dL (3.5-5.1); Anion Gap 12 mmol/L (8-16); Blood Urea Nitrogen 102 mg/dL (9-20); Calcium 7.4 mg/dL (8.4-10.2); Carbon Dioxide 22 mmol/L (22-30); Chloride 97 mmol/L (98-107); Estimated CRCL calculation 12 ml/min; Estimated Glomerular Filt Rate 13; Glucose 292 mg/dL (65-110); Phosphorus 6.2 mg/dL (2.5-4.5); Potassium 4.9 mmol/L (3.4-5.0); Sodium 131 mmol/L (137-145)
[2021-10-16 20:25] LABS: Glucose Point of Care 271 mg/dl (65-105)
[2021-10-16] MEDS: INSULIN GLARGINE (*BKC) 100 UNITS/ML 6 UNITS SUB-Q (20:33)
--- NOTE | 2021-10-16 23:34 | PCRCNOTE ---
Pt not placed on NIV at this time. Pt does not use at home. Pt's O2 saturation is good (93%) on 4L NC, and he is in no apparent respiratory distress. Pt is ordered Q4H nebulizer treatments so will be assessed by Respiratory Q4H. Nurse will also alert RT to any changes in pt's ventilatory/oxygenation status.
[2021-10-16 23:38] LABS: Glucose Point of Care 196 mg/dl (65-105)
[2021-10-17] VITALS (22 sets, daily range): BP systolic 108–157; BP diastolic 62–81; PULSE 60–97; RESP 16–24; TEMP 36.6–36.8; O2SAT 86–100
[2021-10-17] MEDS: ALBUTEROL SULFATE NEB 2.5 MG/0.5 ML INH INHALATION ×6 (03:44→23:36)
[2021-10-17] MEDS: IPRATROPIUM BR 0.02% INH SOLN 0.5 MG/2.5 ML VIAL INHALATION ×6 (03:44→23:36)
[2021-10-17 06:30] LABS: Glucose Point of Care 215 mg/dl (65-105)
[2021-10-17] MEDS: INSULIN ASPART (*BKC) 100 UNITS/ML SUB-Q ×3 (06:36→17:57)
[2021-10-17 06:47] LABS: Anion Gap 6 mmol/L (8-16); Blood Urea Nitrogen 104 mg/dL (9-20); Calcium 7.4 mg/dL (8.4-10.2); Carbon Dioxide 28 mmol/L (22-30); Chloride 96 mmol/L (98-107); Estimated CRCL calculation 14 ml/min; Estimated Glomerular Filt Rate 15; Glucose 196 mg/dL (65-110); Magnesium 2.3 mg/dL (1.6-2.3); Potassium 4.2 mmol/L (3.4-5.0); Sodium 130 mmol/L (137-145)
[2021-10-17 07:00] LABS: Hematocrit 32.4 % (42.0-52.0); Mean Corpuscular Hemoglobin 29.5 pg (26-34); Mean Corpuscular Volume 86.9 fl (80-100); Mean Platelet Volume 9.3 fl (7.4-10.4); Platelet Count Result 177 k/mm3 (150-375); Red Blood Count 3.73 M/mm3 (4.6-6.20); Red Cell Distribution Width 16.1 % (11.5-14.5); White Blood Count 13.2 K/mm3 (4.5-10.0)
--- NOTE | 2021-10-17 11:54 | PM.PNNEP ---
Progress Note: A&P Assessment and Plan (1) Acute kidney injury: Code(s): N17.9 - Acute kidney failure, unspecified Status: Acute Assessment and Plan: OSH labs reviewed - admitted to [facility] in August 2021 with EDUARDO with discharge creatinine 1.02mg/d records indicate a combination of ATN from hypotension and obstruction to blame for EDUARDO creatinine a bit better with improved K+ possible peak/plateau creatinine of 4.6mg/dl evaluation to date: renal ultrasound normal urine electrolytes suggest prerenal azotemia urine eosinophils negative mild proteinuria suspect due to infection [UTI + bacteremia(?) + pneumonia], relative hypotension and concurrent use of EILEEN-I/NSAIDs D/C bicarb IVFs and switch to low dose D5NS follow trend of repeat labs and UOP (2) Altered mental status: Code(s): R41.82 - Altered mental status, unspecified Status: Acute Assessment and Plan: possibly related to EDUARDO +/- uremia infection may be playing a role as well follow trend of mentation with current interventions (3) Healthcare-associated pneumonia: Code(s): J18.9 - Pneumonia, unspecified organism Status: Acute Assessment and Plan: suggested by admission imaging on IV antibioitcs follow culture date (4) Acute UTI: Code(s): N39.0 - Urinary tract infection, site not specified Status: Acute Assessment and Plan: urine culture with Pseudomonas on antibiotics (5) Hypertension: Code(s): I10 - Essential (primary) hypertension Status: Chronic Assessment and Plan: reasonable control follow trend of hemodynamics (6) Diabetes mellitus: Code(s): E11.9 - Type 2 diabetes mellitus without complications Status: Chronic Assessment and Plan: follow accuchecks on SSI and Lantus Will continue to follow. Subjective Date/time seen: 10/17/21 11:54 Renal function a bit better with stable K+ along with better urine output overnight; mentation seems a bit better today as well; oxygen saturations fluctuating with need to for adjustment in supplemental oxygen; no apparent distress voiced at this time. Exam Narrative: General: ill appearing male in NAD Heart: normal S1 and S2; no rub Lungs: clear anteriorly, decreased at bases Abdomen: soft, nontender, nondistended, positive bowel sounds Extremities: no cyanosis or clubbing; no edema Skin: warm and intact Objective Data Vital Signs Vital Signs: Vital Signs Temp Pulse Resp BP Pulse Ox 10/17/21 11:42 88 10/17/21 11:34 84 18 10/17/21 08:00 36.8 C 81 17 157/71 H 99 10/17/21 07:58 85 24 H 10/17/21 07:52 92 10/17/21 07:51 89 24 H 10/17/21 06:00 82 10/17/21 04:00 36.7 C 86 22 H 111/62 93 10/17/21 03:51 89 22 H 10/17/21 03:45 82 24 H 10/17/21 03:25 86 L 10/17/21 01:51 86 10/17/21 00:00 97 93 10/16/21 23:48 36.5 C 92 22 H 126/63 95 10/16/21 23:37 95 22 H 10/16/21 23:30 89 22 H 10/16/21 21:44 97 10/16/21 20:00 36.5 C 102 H 26 H 110/54 L 93 10/16/21 19:50 99 24 H 10/16/21 19:41 97 24 H 92 10/16/21 18:00 108 H 10/16/21 16:28 102 H 22 H 10/16/21 16:00 36.7 C 102 H 22 H 140/67 93 10/16/21 14:00 105 H Intake/Output Intake/Output: Intake & Output 10/14/21 10/15/21 10/16/21 10/17/21 23:59 23:59 23:59 23:59 Intake Total 061 398 3965 930 Output Total 200 225 375 620 Balance 638 031 1671 310 Meds/Results Medications: Active Medications Generic Name Dose Route Start Last Admin Trade Name Freq PRN Reason Stop Dose Admin Albuterol 2.5 mg 10/15/21 04:00 10/17/21 11:32 Albuterol Sulfate Neb 2.5 Mg/0.5 Ml Inh INHALATION 2.5 mg Q4HRT MIRTHA Administration Aspirin 81 mg 10/15/21 09:00 10/15/21 10:58 Aspirin 81 Mg Enteric Tablet PO Not Given DAILY MIRTHA Atorvastatin
--- NOTE | 2021-10-17 11:54 | P.PNNP_ITS ---
Progress Note: A&P Assessment and Plan (1) Acute kidney injury: Code(s): N17.9 - Acute kidney failure, unspecified Status: Acute Assessment and Plan: * OSH labs reviewed - admitted to [facility] in August 2021 with EDUARDO with discharge creatinine 1.02mg/d * records indicate a combination of ATN from hypotension and obstruction to blame for EDUARDO * creatinine a bit better with improved K+ * possible peak/plateau creatinine of 4.6mg/dl * evaluation to date: * renal ultrasound normal * urine electrolytes suggest prerenal azotemia * urine eosinophils negative * mild proteinuria * suspect due to infection [UTI + bacteremia(?) + pneumonia], relative hypotension and concurrent use of EILEEN-I/NSAIDs * D/C bicarb IVFs and switch to low dose D5NS * follow trend of repeat labs and UOP (2) Altered mental status: Code(s): R41.82 - Altered mental status, unspecified Status: Acute Assessment and Plan: * possibly related to EDUARDO +/- uremia * infection may be playing a role as well * follow trend of mentation with current interventions (3) Healthcare-associated pneumonia: Code(s): J18.9 - Pneumonia, unspecified organism Status: Acute Assessment and Plan: * suggested by admission imaging * on IV antibioitcs * follow culture date (4) Acute UTI: Code(s): N39.0 - Urinary tract infection, site not specified Status: Acute Assessment and Plan: * urine culture with Pseudomonas * on antibiotics (5) Hypertension: Code(s): I10 - Essential (primary) hypertension Status: Chronic Assessment and Plan: * reasonable control * follow trend of hemodynamics (6) Diabetes mellitus: Code(s): E11.9 - Type 2 diabetes mellitus without complications Status: Chronic Assessment and Plan: * follow accuchecks * on SSI and Lantus Will continue to follow. Subjective Date/time seen: 10/17/21 11:54 Renal function a bit better with stable K+ along with better urine output overnight; mentation seems a bit better today as well; oxygen saturations fluctuating with need to for adjustment in supplemental oxygen; no apparent distress voiced at this time. Exam Narrative: General: ill appearing male in NAD Heart: normal S1 and S2; no rub Lungs: clear anteriorly, decreased at bases Abdomen: soft, nontender, nondistended, positive bowel sounds Extremities: no cyanosis or clubbing; no edema Skin: warm and intact Objective Data Vital Signs Vital Signs: Vital Signs Temp Pulse Resp BP Pulse Ox 10/17/21 11:42 88 10/17/21 11:34 84 18 10/17/21 08:00 36.8 C 81 17 157/71 H 99 10/17/21 07:58 85 24 H 10/17/21 07:52 92 10/17/21 07:51 89 24 H 10/17/21 06:00 82 10/17/21 04:00 36.7 C 86 22 H 111/62 93 10/17/21 03:51 89 22 H 10/17/21 03:45 82 24 H 10/17/21 03:25 86 L 10/17/21 01:51 86 10/17/21 00:00 97 93 10/16/21 23:48 36.5 C 92 22 H 126/63 95 10/16/21 23:37 95 22 H 10/16/21 23:30 89 22 H 10/16/21 21:44 97 10/16/21 20:00 36.5 C 102 H 26 H 110/54 L 93 10/16/21 19:50 99 24 H 10/16/21 19:41 97 24 H 92 10/16/21 18:00 108 H
[2021-10-17 11:55] LABS: Glucose Point of Care 221 mg/dl (65-105)
--- NOTE | 2021-10-17 15:12 | PCSTNOTE ---
Please refer to the Bedside Swallow Evaluation in the EMR. Please note, silent aspiration cannot be ruled out at bedside.
[2021-10-17] MEDS: SODIUM BICARBONATE 8.4% 150 MEQ in WATER, STERILE FOR INJECTION 950 ML 75 MEQ IV CONT (17:17)
--- NOTE | 2021-10-17 17:36 | PM.IMPN ---
Progress Note: A&P Assessment and Plan (1) Hypertension: Code(s): I10 - Essential (primary) hypertension Status: Chronic (2) DVT prophylaxis: Code(s): Z29.9 - Encounter for prophylactic measures, unspecified Status: Acute (3) Diabetes mellitus: Code(s): E11.9 - Type 2 diabetes mellitus without complications Status: Chronic (4) Acute kidney injury: Code(s): N17.9 - Acute kidney failure, unspecified Status: Acute (5) Acute respiratory failure: Code(s): J96.00 - Acute respiratory failure, unspecified whether with hypoxia or hypercapnia Status: Acute Additional Plan # acute kidney injury # uremic encephalopathy - unclear etiology, patient has had history with urinary retention and was planning on having bladder stimulation procedure with Urology as per family after 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 - patient has history of diabetes was may be playing a role for last 20 years - patient has had different medications over last couple weeks and may have AIN as well - patient has poor p.o. intake and may have prerenal component - appreciate Nephrology consult recommendations - patient does not appear to be hypercarbic, no indication for bipap at this time - creatinine improving however BUN rising, clinically mentation is improving - Newton catheter in place monitoring strict I/Os - holding home Aleve and lisinopril with kidney injury - as mentation is improving we will do swallow study before feeding # electrolyte disturbances -Likely secondary to renal failure - will continue monitor closely hyponatremia, hypochloremia, hyperkalemia ( resolved) # sepsis likely secondary to Pseudomonas urine infection, resolving # Pseudomonas urinary tract infection - leukocytosis improving, will continue broad antibiotics -antibiotics: Azithromycin, cefepime, vancomycin, will consider deescalating tomorrow if continued clinical improvement - Pseudomonas sensitive to cefepime - continue bicarb drip, pH appears to be stabilized, will defer to Nephrology - blood cultures: 1 bottle staph Epi likely contaminant - BP appears stable, heart rate normalized # acute hypoxic respiratory failure -unclear etiology, O2 increased to 6 L by nasal cannula. with worsening O2 requirements will continue broad antibiotics azithromycin and vancomycin - ordering incentive spirometer for atelectasis - patient appeared clinically dry and more likely had atelectasis leading to his hypoxia # hyperglycemia # type 2 diabetes - Accu-Beryl gonzalez HS, sliding scale insulin, glargine 6 units q.h.s., hemoglobin A1c 7.1 on 10/15/21 # other chronic conditions - hyperlipidemia: Lipitor - holding home aspirin, Coreg -hypothyroidism: Synthroid - BPH: Flomax Diet: NPO DVT prophylaxis: SCD Code status: do not resuscitate Disposition: downgraded to medical floor Social: and son updated bedside 10/16 Time Spent With Patient Time with patient: 15 - 25 minutes Subjective Date/time seen: 10/17/21 17:36 patient seen examined. He is clinically doing much better today. Oxygen was 4 L all night and then bumped up to 6 L mass spec. discussed with nurse to continue titrating as tolerated. Patient's BUN continues to rise however his creatinine is improving, clinically mentating better today. will perform a swallow study and provide patient with incentive spirometer. Patient is confused, not oriented But he is more awake and alert today. he denies fever, chills some nausea, vomiting, diarrhea , chest pain, abdominal pain. Review of Systems Review of Systems: All systems reviewed & are unremarkable except as noted in HPI and below Exam Narrative: - GENERAL: ill-appearing frail male, starting to talk, more respon
[2021-10-17] MEDS: DEXTROSE 5%/0.9% SOD CHL 1,000 ML 50 ML IV CONT (17:52)
[2021-10-17 17:56] LABS: Glucose Point of Care 207 mg/dl (65-105)
--- NOTE | 2021-10-17 18:01 | PC.NURSE ---
This patient, Gianni Bynum, was transferred to [facility] on 10/17/21 at 1758. Personal belongings sent with patient. Report given to Edna LANCE. Appropriate documentation sent with patient.
[2021-10-17] MEDS: AZITHROMYCIN IV 500 MG in SODIUM CHLORIDE 0.9% IV 250 ML 250 MG IVPB (18:18)
[2021-10-17] MEDS: INSULIN GLARGINE (*BKC) 100 UNITS/ML 6 UNITS SUB-Q (20:39)
[2021-10-17 22:08] LABS: Glucose Point of Care 166 mg/dl (65-105)
[2021-10-17 23:53] LABS: Glucose Point of Care 198 mg/dl (65-105)
[2021-10-18] VITALS (19 sets, daily range): BP systolic 110–153; BP diastolic 56–69; PULSE 66–96; RESP 16–20; TEMP 36.3–36.6; O2SAT 92–99
[2021-10-18] MEDS: IPRATROPIUM BR 0.02% INH SOLN 0.5 MG/2.5 ML VIAL INHALATION ×5 (03:42→23:51)
[2021-10-18] MEDS: ALBUTEROL SULFATE NEB 2.5 MG/0.5 ML INH INHALATION ×5 (03:42→23:51)
[2021-10-18 06:04] LABS: Glucose Point of Care 287 mg/dl (65-105)
[2021-10-18] MEDS: INSULIN ASPART (*BKC) 100 UNITS/ML SUB-Q ×3 (06:06→17:02)
[2021-10-18 06:48] LABS: Anion Gap 4 mmol/L (8-16); Blood Urea Nitrogen 102 mg/dL (9-20); Calcium 7.6 mg/dL (8.4-10.2); Carbon Dioxide 32 mmol/L (22-30); Chloride 97 mmol/L (98-107); Estimated CRCL calculation 20 ml/min; Estimated Glomerular Filt Rate 24; Glucose 235 mg/dL (65-110); Magnesium 2.4 mg/dL (1.6-2.3); Potassium 4.2 mmol/L (3.4-5.0); Sodium 133 mmol/L (137-145)
[2021-10-18 07:02] LABS: Basophils Percent Auto 0.2 % (0.2-1.2); Eosinophils Absolute Auto 0.2 K/mm3 (0-0.3); Eosinophils Percent Auto 2.3 % (0-4.4); Hematocrit 34.1 % (42.0-52.0); Hemoglobin 11.2 g/dL (14.0-18.0); Immature Granulocyte Absolute 0.05 K/mm3 (0.00-0.031); Immature Granulocyte Percent A 0.5 % (0-0.5); Mean Corpuscular HGB Conc 32.8 g/dl (32-36); Mean Corpuscular Hemoglobin 28.3 pg (26-34); Mean Corpuscular Volume 86.1 fl (80-100); Mean Platelet Volume 9.4 fl (7.4-10.4); Monocytes Absolute Auto 0.8 K/mm3 (0.1-0.6); Monocytes Percent Auto 7.9 % (2.6-8.5); Neutrophils Absolute Auto 7.8 K/mm3 (1.3-6.7); Neutrophils Percent Auto 77.1 % (45.5-73.1); Platelet Count Result 181 k/mm3 (150-375); Red Blood Count 3.96 M/mm3 (4.6-6.20); Red Cell Distribution Width 15.9 % (11.5-14.5)
--- NOTE | 2021-10-18 10:42 | PM.IMPN ---
Progress Note: A&P Assessment and Plan (1) Altered mental status: Code(s): R41.82 - Altered mental status, unspecified Status: Acute Assessment and Plan: Patient with altered mental status present on admission but worsened. CT brain showing no acute process. Ammonia, B12, folate within normal limits. TSH low but FT4 normal. [place] related to sepsis and uremia Causing metabolic encephalopathy. Mental status better with treatment of his infection but no change with uremia. Follow. (2) Acute respiratory failure: Code(s): J96.00 - Acute respiratory failure, unspecified whether with hypoxia or hypercapnia Status: Acute Assessment and Plan: Blood gas showed 7.33/30/67 on 6 L high-flow. Patient was placed on BiPAP. CXR showing opacities in the bilateral mid and lower lung zones. Most likely acute respiratory failure related to pneumonia but cannot exclude fluid overload from oliguric renal failure. Lower extremity venous Dopplers was negative. MBS showing patient can swallow safely. Will wean O2 as tolerated. (3) Healthcare-associated pneumonia: Code(s): J18.9 - Pneumonia, unspecified organism Status: Acute Assessment and Plan: Patient presents with weakness. Found to have respiratory distress. Chest x-ray shows cardiomegaly, mild pulmonary edema and bibasilar airspace opacities. No fevers but white count was elevated. Patient was started on vancomycin, cefepime and Zithromax. BCx growing Staph Epi (1of2 bottles) probably contaminate but sensitive to Vanco. UCx growing Pseudomonas sensitive to Cefepime. Continue current IV abx. (4) Acute kidney injury: Code(s): N17.9 - Acute kidney failure, unspecified Status: Acute Assessment and Plan: Baseline creatinine 1.02. Naproxen and lisinopril were held on admission. Renal US with normal kidneys. UEos negative. Tino 47. Creatinine peaked at 4.6 but better today at 2.6. BUN up to 102 and stable. Suspect ATN from the sepsis and pre-renal from dehydration. Urine output is poor with 375mL (5/) and 800mL (/8). Nephrology following and appreciate their input. (5) Acute exacerbation of congestive heart failure: Code(s): I50.9 - Heart failure, unspecified Status: Acute Assessment and Plan: Patient to BNP was 3000. Chest x-ray as mentioned above. Patient may have CHF exacerbation or possibly fluid overload from oliguric renal failure. Patient has not received diuretics since admission. Monitor closely on fluids. (6) Acute UTI: Code(s): N39.0 - Urinary tract infection, site not specified Status: Acute Assessment and Plan: UA noted. Urine culture growing Pseudomonas. Complicated UTI with chronic indwelling Newton that was changed out in ED. Continue broad-spectrum IV antibiotics. (7) Diabetes mellitus: Code(s): E11.9 - Type 2 diabetes mellitus without complications Status: Chronic Assessment and Plan: The patient's blood glucose was reviewed on 10/18 Glucose is poorly controlled but was on D5. Patient eating now. Continue AccuCheks covering with sliding scale. Hypoglycemia protocol available as needed. Continue Lantus and stop dextrose. (8) Muscular deconditioning: Code(s): R29.898 - Other symptoms and signs involving the musculoskeletal system Status: Acute Assessment and Plan: Improved. Start PT/OT (9) Chronic indwelling Newton catheter: Code(s): Z97.8 - Presence of other specified devices Status: Acute Assessment and Plan: Newton catheter exchanged since admission. (10) DVT prophylaxis: Code(s): Z29.9 - Encounter for prophylactic measures, unspecified Status: Acute Assessment and Plan: SCDs Subjective Date/time seen: 10/18/21 10:42 Interval history: 80yo male with DM, HTN and urine retention here for weakness. Resuming care. Chart reviewed. Patient having bowel
--- NOTE | 2021-10-18 11:25 | PCNFU ---
Nutrition Follow-Up Complete: Inadequate oral intake R/T decreased appetite AEB pt report Goal: Pt to meet >50% of estimated nutritional needs Patient is progressing towards goal. We will continue current goal. Pt current nutrition is Soft and Bite Sized, level 6/DBCC. Last recorded weight is 69.7 kg, up from 65 kg on admit. Bowel Motility: +BM reported 10/18 Labs Reviewed: Glu 235, GFR 24,Cr 2.6, Hct 34.1,Hgb 11.2, Na 133, BUN 102, Cr 2.6 Meds Noted:Atrovent, Albuterol Skin: WNL Additional Notes: Patient had MBS today recommending soft and bite sized, level 6 with thin liquids. Recommending Glucerna shakes BID providing an additional 220 kcals and 10 gms protein. Agree with diet orders. Will monitor labs, medication, wt, and reported intake every 3 days.
[2021-10-18] MEDS: SODIUM CHLORIDE 0.9% IV 1,000 ML 75 ML IV CONT (11:32)
[2021-10-18 12:16] LABS: Glucose Point of Care 284 mg/dl (65-105)
--- NOTE | 2021-10-18 12:37 | PM.PNNEP ---
Progress Note: A&P Assessment and Plan (1) Acute kidney injury: Code(s): N17.9 - Acute kidney failure, unspecified Status: Acute Assessment and Plan: slow improvement noted OSH labs reviewed - admitted to [facility] in August 2021 with EDUARDO with discharge creatinine 1.02mg/d records indicate a combination of ATN from hypotension and obstruction to blame for EDUARDO creatinine a bit better with improved K+ possible peak/plateau creatinine of 4.6mg/dl; BUN still elevated though evaluation to date: renal ultrasound normal urine electrolytes suggest prerenal azotemia urine eosinophils negative mild proteinuria suspect due to infection [UTI + bacteremia(?) + pneumonia], relative hypotension and concurrent use of EILEEN-I/NSAIDs follow trend of repeat labs and UOP (2) Altered mental status: Code(s): R41.82 - Altered mental status, unspecified Status: Acute Assessment and Plan: slow improvement noted possibly related to EDUARDO +/- uremia infection may be playing a role as well follow trend of mentation with current interventions (3) Healthcare-associated pneumonia: Code(s): J18.9 - Pneumonia, unspecified organism Status: Acute Assessment and Plan: suggested by admission imaging on IV antibioitcs follow culture date (4) Acute UTI: Code(s): N39.0 - Urinary tract infection, site not specified Status: Acute Assessment and Plan: urine culture with Pseudomonas on antibiotics (5) Hypertension: Code(s): I10 - Essential (primary) hypertension Status: Chronic Assessment and Plan: reasonable control follow trend of hemodynamics (6) Diabetes mellitus: Code(s): E11.9 - Type 2 diabetes mellitus without complications Status: Chronic Assessment and Plan: follow accuchecks on SSI and Lantus Will continue to follow. Subjective Date/time seen: 10/18/21 12:37 Mentation seems to be slowly improving as is renal function; urine output is improving as well in the last 24 hours; no issues/events overnight or earlier this morning. Exam Narrative: General: ill appearing male in NAD Heart: normal S1 and S2; no rub Lungs: clear anteriorly, decreased at bases Abdomen: soft, nontender, nondistended, positive bowel sounds Extremities: no cyanosis or clubbing; no edema Skin: no rash Objective Data Vital Signs Vital Signs: Vital Signs Temp Pulse Resp BP Pulse Ox 10/18/21 12:05 97 05/09/22 12:00 99 10/18/21 09:29 72 20 10/18/21 09:20 70 20 10/18/21 08:00 94 10/18/21 05:15 36.3 C L 81 16 153/69 H 94 10/18/21 03:52 66 20 10/18/21 03:42 66 20 10/17/21 23:46 78 20 10/17/21 23:36 78 20 94 10/17/21 20:00 78 20 94 10/17/21 19:50 60 20 10/17/21 19:44 36.6 C 78 16 108/63 99 10/17/21 19:40 60 20 95 Intake/Output Intake/Output: Intake & Output 10/15/21 10/16/21 10/17/21 10/18/21 23:59 23:59 23:59 23:59 Intake Total 550 2900 1900 530 Output Total 225 375 800 800 Balance 325 2525 1100 -270 Meds/Results Medications: Active Medications Generic Name Dose Route Start Last Admin Trade Name Freq PRN Reason Stop Dose Admin Albuterol 2.5 mg 10/15/21 04:00 10/18/21 14:02 Albuterol Sulfate Neb 2.5 Mg/0.5 Ml Inh INHALATION Not Given Q4HRT [facility] Aspirin 81 mg 10/15/21 09:00 10/15/21 10:58 Aspirin 81 Mg Enteric Tablet PO Not Given DAILY MIRTHA Atorvastatin Calcium 40 mg 10/15/21 21:00 Atorvastatin 40 Mg Tablet PO HS [facility] Carvedilol 6.25 mg 10/15/21 09:00 10/15/21 10:59 Carvedilol 6.25 Mg Tablet PO Not Given Q12HR [facility] Dextrose 12.5 gm 10/18/21 10:39 Dextrose 50% 25 Gm/50 Ml Syringe IV PUSH PRN PRN Hypoglycemia Protocol Glucagon 1 mg 10/18/21 10:39 Glucagon For Inj 1 Mg Vial IM PRN PRN Hypoglycemia Pr
--- NOTE | 2021-10-18 12:37 | P.PNNP_ITS ---
Progress Note: A&P Assessment and Plan (1) Acute kidney injury: Code(s): N17.9 - Acute kidney failure, unspecified Status: Acute Assessment and Plan: * slow improvement noted * OSH labs reviewed - admitted to [facility] in August 2021 with EDUARDO with discharge creatinine 1.02mg/d * records indicate a combination of ATN from hypotension and obstruction to blame for EDUARDO * creatinine a bit better with improved K+ * possible peak/plateau creatinine of 4.6mg/dl; BUN still elevated though * evaluation to date: * renal ultrasound normal * urine electrolytes suggest prerenal azotemia * urine eosinophils negative * mild proteinuria * suspect due to infection [UTI + bacteremia(?) + pneumonia], relative hyp otension and concurrent use of EILEEN-I/NSAIDs * follow trend of repeat labs and UOP (2) Altered mental status: Code(s): R41.82 - Altered mental status, unspecified Status: Acute Assessment and Plan: * slow improvement noted * possibly related to EDUARDO +/- uremia * infection may be playing a role as well * follow trend of mentation with current interventions (3) Healthcare-associated pneumonia: Code(s): J18.9 - Pneumonia, unspecified organism Status: Acute Assessment and Plan: * suggested by admission imaging * on IV antibioitcs * follow culture date (4) Acute UTI: Code(s): N39.0 - Urinary tract infection, site not specified Status: Acute Assessment and Plan: * urine culture with Pseudomonas * on antibiotics (5) Hypertension: Code(s): I10 - Essential (primary) hypertension Status: Chronic Assessment and Plan: * reasonable control * follow trend of hemodynamics (6) Diabetes mellitus: Code(s): E11.9 - Type 2 diabetes mellitus without complications Status: Chronic Assessment and Plan: * follow accuchecks * on SSI and Lantus Will continue to follow. Subjective Date/time seen: 10/18/21 12:37 Mentation seems to be slowly improving as is renal function; urine output is improving as well in the last 24 hours; no issues/events overnight or earlier this morning. Exam Narrative: General: ill appearing male in NAD Heart: normal S1 and S2; no rub Lungs: clear anteriorly, decreased at bases Abdomen: soft, nontender, nondistended, positive bowel sounds Extremities: no cyanosis or clubbing; no edema Skin: no rash Objective Data Vital Signs Vital Signs: Vital Signs Temp Pulse Resp BP Pulse Ox 10/18/21 12:05 97 10/18/21 12:00 99 10/18/21 09:29 72 20 10/18/21 09:20 70 20 10/18/21 08:00 94 10/18/21 05:15 36.3 C L 81 16 153/69 H 94 10/18/21 03:52 66 20 10/18/21 03:42 66 20 10/17/21 23:46 78 20 10/17/21 23:36 78 20 94 10/17/21 20:00 78 20 94 10/17/21 19:50 60 20 10/17/21 19:44 36.6 C 78 16 108/63 99 10/17/21 19:40 60 20 95 Intake/Output Intake/Output: Intake & Output 10/15/21 10/16/21 10/17/21 10/18/21 23:59 23:59 23:59 23:59 Intake Total 550 2900 1900 530 Output Total 225 375 800 800 Balance 325 2018 1100 -270 Meds/Results Medications:
--- NOTE | 2021-10-18 14:19 | PC.NURSE ---
Patient having increased shaking in his arms. Dropped spoon several times while eating. Per Ot patient aslo had uncontrolable shaking of arms and legs while working with them. Dr Clark notified
--- NOTE | 2021-10-18 15:50 | PCPTNOTE ---
Attempted to see patient for physical therapy evaluation. RN requested wait for PT evaluation until tomorrow morning as he has been out of bed all morning and is now sleeping well.
[2021-10-18] MEDS: AZITHROMYCIN IV 500 MG in SODIUM CHLORIDE 0.9% IV 250 ML 125 MG IVPB (16:22)
[2021-10-18 17:05] LABS: Glucose Point of Care 357 mg/dl (65-105)
[2021-10-18] MEDS: ATORVASTATIN 40 MG TABLET PO (20:22)
[2021-10-18] MEDS: carvediloL 6.25 MG TABLET PO (20:22)
[2021-10-18] MEDS: INSULIN GLARGINE (*BKC) 100 UNITS/ML 8 UNITS SUB-Q (20:23)
[2021-10-18 21:25] LABS: Glucose Point of Care 272 mg/dl (65-105)
[2021-10-19] VITALS (19 sets, daily range): BP systolic 132–154; BP diastolic 65–84; PULSE 68–93; RESP 12–20; TEMP 36.1–36.4; O2SAT 89–99
[2021-10-19 02:23] LABS: Glucose Point of Care 315 mg/dl (65-105)
[2021-10-19] MEDS: SODIUM CHLORIDE 0.9% IV 1,000 ML 75 ML IV CONT (02:30)
[2021-10-19 02:41] LABS: Albumin Level 2.3 g/dL (3.5-5.1); Anion Gap 1 mmol/L (8-16); Blood Urea Nitrogen 94 mg/dL (9-20); Calcium 7.5 mg/dL (8.4-10.2); Carbon Dioxide 33 mmol/L (22-30); Chloride 99 mmol/L (98-107); Estimated CRCL calculation 23 ml/min; Estimated Glomerular Filt Rate 29; Glucose 254 mg/dL (65-110); Phosphorus 4.1 mg/dL (2.5-4.5); Potassium 4.2 mmol/L (3.4-5.0); Sodium 133 mmol/L (137-145)
[2021-10-19 02:57] LABS: Vancomycin Trough 8.9 ug/mL (10.0-20.0)
[2021-10-19] MEDS: VANCOMYCIN HCL 1,000 MG in SODIUM CHLORIDE 0.9% IV 250 ML 250 MG IVPB (03:52)
[2021-10-19] MEDS: ALBUTEROL SULFATE NEB 2.5 MG/0.5 ML INH INHALATION ×4 (04:45→19:28)
[2021-10-19] MEDS: IPRATROPIUM BR 0.02% INH SOLN 0.5 MG/2.5 ML VIAL INHALATION ×4 (04:45→19:28)
[2021-10-19] MEDS: LEVOTHYROXINE SODIUM 88 MCG TABLET PO (06:09)
[2021-10-19 06:19] LABS: Glucose Point of Care 278 mg/dl (65-105)
[2021-10-19 07:54] LABS: Glucose Point of Care 307 mg/dl (65-105)
[2021-10-19] MEDS: TAMSULOSIN HCL 0.4 MG CAPSULE 0.8 MG PO (08:01)
[2021-10-19] MEDS: ASPIRIN 81 MG ENTERIC TABLET PO (08:01)
[2021-10-19] MEDS: carvediloL 6.25 MG TABLET PO ×2 (08:01→21:32)
[2021-10-19] MEDS: INSULIN ASPART (*BKC) 100 UNITS/ML SUB-Q ×4 (08:03→16:49)
[2021-10-19 10:26] LABS: IFOB Positive Control Positive; Immunochemical Fecal Occult Bl Positive (N)
--- NOTE | 2021-10-19 10:53 | P.PNNP_ITS ---
Progress Note: A&P Assessment and Plan (1) Acute kidney injury: Code(s): N17.9 - Acute kidney failure, unspecified Status: Acute Assessment and Plan: * slow improvement noted * OSH labs reviewed - admitted to [facility] in August 2021 with EDUARDO with discharge creatinine 1.02mg/dl * records indicate a combination of ATN from hypotension and obstruction to blame for EDUARDO * possible peak/plateau creatinine of 4.6mg/dl * evaluation to date: * renal ultrasound normal * urine electrolytes suggest prerenal azotemia * urine eosinophils negative * mild proteinuria * suspect due to infection [UTI + bacteremia(?) + pneumonia], relative hypotension and concurrent use of EILEEN-I/NSAIDs * follow trend of repeat labs and UOP (2) Altered mental status: Code(s): R41.82 - Altered mental status, unspecified Status: Acute Assessment and Plan: * slow improvement noted * possibly related to EDUARDO +/- uremia * infection may be playing a role as well * follow trend of mentation with current interventions (3) Healthcare-associated pneumonia: Code(s): J18.9 - Pneumonia, unspecified organism Status: Acute Assessment and Plan: * suggested by admission imaging * on IV antibioitcs * follow culture date (4) Acute UTI: Code(s): N39.0 - Urinary tract infection, site not specified Status: Acute Assessment and Plan: * urine culture with Pseudomonas * on antibiotics (5) Hypertension: Code(s): I10 - Essential (primary) hypertension Status: Chronic Assessment and Plan: * reasonable control * follow trend of hemodynamics (6) Diabetes mellitus: Code(s): E11.9 - Type 2 diabetes mellitus without complications Status: Chronic Assessment and Plan: * follow accuchecks * on SSI and Lantus Will continue to follow. Subjective Date/time seen: 10/19/21 10:53 Mentation continues to make slow and steady improvement; eating and drinking fairly well; improvement in renal function noted as well; some improvement in weakness as well. Exam Narrative: General: ill appearing male in NAD Heart: normal S1 and S2; no rub Lungs: clear anteriorly, decreased at bases Abdomen: soft, nontender, nondistended, positive bowel sounds Extremities: no cyanosis or clubbing; no edema Skin: no nodules Objective Data Vital Signs Vital Signs: Vital Signs Temp Pulse Resp BP Pulse Ox 10/19/21 09:51 84 12 10/19/21 09:48 93 12 10/19/21 08:01 85 10/19/21 06:00 36.4 C 69 18 148/65 H 97 10/19/21 04:30 73 20 10/19/21 04:22 69 20 10/19/21 00:02 82 20 10/18/21 23:54 79 20 10/18/21 22:00 36.5 C 82 18 131/68 97 10/18/21 20:37 77 20 10/18/21 20:30 92 10/18/21 20:29 82 20 10/18/21 20:22 70 10/18/21 20:00 77 20 92 10/18/21 17:13 68 20 10/18/21 14:48 96 10/18/21 14:38 98 10/18/21 14:10 36.6 C 96 18 110/56 L 98 10/18/21 12:05 97 10/18/21 12:00 99 Intake/Output Intake/Output: Intake & Output 10/16/21 10/17/21 10/18/21 10/19/21 23:59 23:59 23:59 23:59 Intake Total 2900 19
--- NOTE | 2021-10-19 10:53 | PM.PNNEP ---
Progress Note: A&P Assessment and Plan (1) Acute kidney injury: Code(s): N17.9 - Acute kidney failure, unspecified Status: Acute Assessment and Plan: slow improvement noted OSH labs reviewed - admitted to [facility] in August 2021 with EDUARDO with discharge creatinine 1.02mg/dl records indicate a combination of ATN from hypotension and obstruction to blame for EDUARDO possible peak/plateau creatinine of 4.6mg/dl evaluation to date: renal ultrasound normal urine electrolytes suggest prerenal azotemia urine eosinophils negative mild proteinuria suspect due to infection [UTI + bacteremia(?) + pneumonia], relative hypotension and concurrent use of EILEEN-I/NSAIDs follow trend of repeat labs and UOP (2) Altered mental status: Code(s): R41.82 - Altered mental status, unspecified Status: Acute Assessment and Plan: slow improvement noted possibly related to EDUARDO +/- uremia infection may be playing a role as well follow trend of mentation with current interventions (3) Healthcare-associated pneumonia: Code(s): J18.9 - Pneumonia, unspecified organism Status: Acute Assessment and Plan: suggested by admission imaging on IV antibioitcs follow culture date (4) Acute UTI: Code(s): N39.0 - Urinary tract infection, site not specified Status: Acute Assessment and Plan: urine culture with Pseudomonas on antibiotics (5) Hypertension: Code(s): I10 - Essential (primary) hypertension Status: Chronic Assessment and Plan: reasonable control follow trend of hemodynamics (6) Diabetes mellitus: Code(s): E11.9 - Type 2 diabetes mellitus without complications Status: Chronic Assessment and Plan: follow accuchecks on SSI and Lantus Will continue to follow. Subjective Date/time seen: 10/19/21 10:53 Mentation continues to make slow and steady improvement; eating and drinking fairly well; improvement in renal function noted as well; some improvement in weakness as well. Exam Narrative: General: ill appearing male in NAD Heart: normal S1 and S2; no rub Lungs: clear anteriorly, decreased at bases Abdomen: soft, nontender, nondistended, positive bowel sounds Extremities: no cyanosis or clubbing; no edema Skin: no nodules Objective Data Vital Signs Vital Signs: Vital Signs Temp Pulse Resp BP Pulse Ox 10/19/21 09:51 84 12 10/19/21 09:48 93 12 10/19/21 08:01 85 10/19/21 06:00 36.4 C 69 18 148/65 H 97 10/19/21 04:30 73 20 10/19/21 04:22 69 20 10/19/21 00:02 82 20 10/18/21 23:54 79 20 10/18/21 22:00 36.5 C 82 18 131/68 97 10/18/21 20:37 77 20 10/18/21 20:30 92 10/18/21 20:29 82 20 10/18/21 20:22 70 10/18/21 20:00 77 20 92 10/18/21 17:13 68 20 10/18/21 14:48 96 10/18/21 14:38 98 10/18/21 14:10 36.6 C 96 18 110/56 L 98 10/18/21 12:05 97 10/18/21 12:00 99 Intake/Output Intake/Output: Intake & Output 10/16/21 10/17/21 10/18/21 10/19/21 23:59 23:59 23:59 23:59 Intake Total 2900 7362 903 1744 Output Total 087 902 4606 800 Balance 2525 1100 -450 1100 Meds/Results Medications: Active Medications Generic Name Dose Route Start Last Admin Trade Name Maxime PRN Reason Stop Dose Admin Albuterol 2.5 mg 10/15/21 04:00 10/19/21 09:47 Albuterol Sulfate Neb 2.5 Mg/0.5 Ml Inh INHALATION 2.5 mg Q4HRT MIRTHA Administration Aspirin 81 mg 10/15/21 09:00 10/19/21 08:01 Aspirin 81 Mg Enteric Tablet PO 81 mg DAILY MIRTHA Administration Atorvastatin Calcium 40 mg 10/15/21 21:00 10/18/21 20:22 Atorvastatin 40 Mg Tablet PO 40 mg HS MIRTHA Administration Carvedilol 6.25 mg 10/15/21 09:00 10/19/21 08:01 Carvedilol 6.25 Mg Tablet PO 6.25 mg Q12HR MIRTHA Administration Dextrose 12.5 gm 10/18/21 10:39 Dextrose 50% 25 G
[2021-10-19 11:57] LABS: Glucose Point of Care 357 mg/dl (65-105)
[2021-10-19] MEDS: IPRATROPIUM BR 0.02% INH SOLN 0.5 MG/2.5 ML VIAL (12:54)
--- NOTE | 2021-10-19 12:57 | PM.IMPN ---
Progress Note: A&P Assessment and Plan (1) Rectal bleeding: Code(s): K62.5 - Hemorrhage of anus and rectum Status: Acute Assessment and Plan: Patient had one episode of bright red blood per rectum per RN. Hgb stable. Probably from hemorroids. Consider colitis given that he has been on abx. Follow HH. Consider GI consult if it recurs or HH drops (2) Altered mental status: Code(s): R41.82 - Altered mental status, unspecified Status: Acute Assessment and Plan: Patient with altered mental status present on admission that worsened. CT brain showing no acute process. Ammonia, B12, folate within normal limits. TSH low but FT4 normal. [place] related to sepsis and less so, the uremia causing a metabolic encephalopathy. Mental status better with treatment of his infection. Uremia slowly improving. Follow. (3) Acute respiratory failure: Code(s): J96.00 - Acute respiratory failure, unspecified whether with hypoxia or hypercapnia Status: Acute Assessment and Plan: Blood gas showed 7.33/30/67 on 6 L high-flow. Patient was placed on BiPAP. CXR showing moderate size right and small left pleural effusions and stable airspace opacities of the mid and lower lung zones. Most likely acute respiratory failure related to pneumonia but cannot exclude fluid overload from oliguric renal failure. Lower extremity venous Dopplers were negative. MBS showing patient can swallow safely. Continue to wean O2 as tolerated. Lasix? (4) Healthcare-associated pneumonia: Code(s): J18.9 - Pneumonia, unspecified organism Status: Acute Assessment and Plan: Patient presents with weakness. Found to have respiratory distress. Chest x-ray shows cardiomegaly, mild pulmonary edema and bibasilar airspace opacities. No fevers but white count was elevated. Patient was started on vancomycin, cefepime and Zithromax. BCx growing Staph Epi (1of2 bottles) probably contaminate but sensitive to Vanco. UCx growing Pseudomonas sensitive to Cefepime. WBC normal now. Stop Azithromycin. Continue current IV abx and adjust as needed. (5) Acute kidney injury: Code(s): N17.9 - Acute kidney failure, unspecified Status: Acute Assessment and Plan: Baseline creatinine 1.02. Naproxen and lisinopril were held on admission. Renal US showing normal kidneys. UEos negative. Tino 47. Creatinine peaked at 4.6 but better today at 2.2. BUN up to 104 but trending down now. Suspect ATN from the sepsis and pre-renal from dehydration. Urine output is better with 1200mL out yesterday. Nephrology following and appreciate their input. He remains on IV fluids. (6) Acute exacerbation of congestive heart failure: Code(s): I50.9 - Heart failure, unspecified Status: Acute Assessment and Plan: Patient to BNP was 3000. Chest x-ray as mentioned above. Patient may have CHF exacerbation or possibly fluid overload from oliguric renal failure. Patient has not received diuretics since admission. Monitor closely on fluids. (7) Acute UTI: Code(s): N39.0 - Urinary tract infection, site not specified Status: Acute Assessment and Plan: UA noted. Urine culture growing Pseudomonas. Complicated UTI with chronic indwelling Newton that was changed out in ED. Continue broad-spectrum IV antibiotics. (8) Diabetes mellitus: Code(s): E11.9 - Type 2 diabetes mellitus without complications Status: Chronic Assessment and Plan: The patient's blood glucose was reviewed on 10/19 Glucose is eating now so glucose higher. Continue AccuCheks covering with sliding scale. Hypoglycemia protocol available as needed. Advance Lantus. Add mealtime insulin (9) Muscular deconditioning: Code(s): R29.898 - Other symptoms and signs involving the musculoskeletal system Status: Acute Assessment and Plan: Improved. Continue PT/OT (10) Chronic indwelling Newton catheter:
[2021-10-19 14:50] LABS: Hematocrit 28.5 % (42.0-52.0); Hemoglobin 10.7 g/dL (14.0-18.0)
[2021-10-19 16:48] LABS: Glucose Point of Care 333 mg/dl (65-105)
[2021-10-19 19:51] LABS: Hemoglobin 10.3 g/dL (14.0-18.0)
[2021-10-19] MEDS: ATORVASTATIN 40 MG TABLET PO (21:32)
[2021-10-19] MEDS: INSULIN GLARGINE (*BKC) 100 UNITS/ML 12 UNITS SUB-Q (21:34)
[2021-10-19] MEDS: SODIUM CHLORIDE 0.9% IV 1,000 ML 60 ML IV CONT (21:37)
[2021-10-19 21:44] LABS: Glucose Point of Care 258 mg/dl (65-105)
[2021-10-20] VITALS (23 sets, daily range): BP systolic 117–159; BP diastolic 55–72; PULSE 64–90; RESP 16–20; TEMP 35.6–36.7; O2SAT 75–98
[2021-10-20] MEDS: ALBUTEROL SULFATE NEB 2.5 MG/0.5 ML INH INHALATION ×6 (00:09→19:27)
[2021-10-20] MEDS: IPRATROPIUM BR 0.02% INH SOLN 0.5 MG/2.5 ML VIAL INHALATION ×6 (00:09→19:26)
[2021-10-20 00:43] LABS: Hematocrit 25.8 % (42.0-52.0); Hemoglobin 9.4 g/dL (14.0-18.0)
[2021-10-20] MEDS: LEVOTHYROXINE SODIUM 88 MCG TABLET PO (05:30)
[2021-10-20 06:23] LABS: Albumin Level 2.2 g/dL (3.5-5.1); Anion Gap 3 mmol/L (8-16); Blood Urea Nitrogen 74 mg/dL (9-20); Calcium 7.3 mg/dL (8.4-10.2); Carbon Dioxide 30 mmol/L (22-30); Chloride 103 mmol/L (98-107); Estimated CRCL calculation 34 ml/min; Estimated Glomerular Filt Rate 45; Glucose 183 mg/dL (65-110); Magnesium 2.1 mg/dL (1.6-2.3); Phosphorus 3.1 mg/dL (2.5-4.5); Sodium 136 mmol/L (137-145)
[2021-10-20 07:00] LABS: Hematocrit 28.9 % (42.0-52.0); Hemoglobin 9.1 g/dL (14.0-18.0); Mean Corpuscular HGB Conc 31.5 g/dl (32-36); Mean Corpuscular Hemoglobin 27.1 pg (26-34); Mean Platelet Volume 9.3 fl (7.4-10.4); Platelet Count Result 190 k/mm3 (150-375); Red Blood Count 3.36 M/mm3 (4.6-6.20); Red Cell Distribution Width 15.9 % (11.5-14.5); White Blood Count 6.8 K/mm3 (4.5-10.0)
[2021-10-20 07:27] LABS: Glucose Point of Care 185 mg/dl (65-105)
--- NOTE | 2021-10-20 07:31 | PCRCNOTE ---
10/19/21 1600 dose of Albuterol and Atrovent not given. Window of time for administration has passed. See next scheduled administration.
[2021-10-20] MEDS: INSULIN ASPART (*BKC) 100 UNITS/ML SUB-Q ×4 (07:58→16:22)
[2021-10-20] MEDS: ASPIRIN 81 MG ENTERIC TABLET PO (08:00)
[2021-10-20] MEDS: TAMSULOSIN HCL 0.4 MG CAPSULE 0.8 MG PO (08:00)
[2021-10-20] MEDS: carvediloL 6.25 MG TABLET PO ×2 (08:01→20:21)
[2021-10-20 08:22] LABS: Iron 40 ug/dL (49-181)
[2021-10-20 08:32] LABS: Percent Iron Saturation 21 % (20-50)
--- NOTE | 2021-10-20 08:34 | WPDGICN ---
Assessment and Plan Assessment and plan (1) Rectal bleeding: Code(s): K62.5 - Hemorrhage of anus and rectum Status: Acute Assessment and Plan: Patient with recent rectal bleeding. Most consistent with hemorrhoidal bleeding. Other etiologies cannot be excluded. Given patient's comorbid diseases colonoscopy is not feasible. This can always be reconsidered electively should his medical status change in the future. Would recommend conservative treatment with stool softeners to minimize additional bleeding. (2) Anemia: Code(s): D64.9 - Anemia, unspecified Status: Acute Assessment and Plan: Patient has chronic anemia. Recent decline in hemoglobin appears to correlate with IV fluid rehydration for his azotemia. Suspect anemia related to his chronic kidney disease. Unlikely to be related to this 1 episode of bright red blood per rectum. (3) Pneumonia: Qualifiers: Laterality: unspecified laterality Lung location: unspecified part of lung Pneumonia type: due to unspecified organism Qualified Code(s): J18.9 - Pneumonia, unspecified organism Code(s): J18.9 - Pneumonia, unspecified organism Status: Acute Assessment and Plan: Patient has had respiratory difficulties requiring supplemental oxygen and BiPAP because of his pneumonia. This precludes invasive testing at this time unless emergency develops. (4) Acute UTI: Code(s): N39.0 - Urinary tract infection, site not specified Status: Acute Assessment and Plan: Patient remains on antibiotics for what appears to be in active urinary tract infection. (5) Acute exacerbation of congestive heart failure: Code(s): I50.9 - Heart failure, unspecified Status: Acute (6) Chronic indwelling Newton catheter: Code(s): Z97.8 - Presence of other specified devices Status: Acute (7) Acute kidney injury: Code(s): N17.9 - Acute kidney failure, unspecified Status: Acute Assessment and Plan: Patient with profound azotemia that is gradually improving with rehydration. Renal services following currently. GI Consult Note Consult date/time: 10/20/21 08:34 HPI: Gianni Bynum is a 80 year old male I am asked to see for anemia and rectal bleeding. Patient admitted to the hospital a week ago. Found to have acute kidney injury consistent with pre renal azotemia. He appears to have acute urinary tract infection. Patient has additional difficulties with pneumonia and acute respiratory difficulties. He has been placed on BiPAP. He has been treated for congestive heart failure, diabetes and has a chronic indwelling Newton catheter. Patient has had bouts of altered mental status felt to be metabolic encephalopathy. Yesterday passed to the episode of bright red blood per rectum. Patient denies any abdominal or rectal pain. He has not notice bleeding previously. In fact bleeding was only notice by nursing service. Patient does have an ongoing anemia that has been present for sometime with recent decline with recent rehydration. Review of Systems Review of Systems: All systems reviewed & are unremarkable except as noted in HPI and below PMFSH Past Medical History Medical History Diabetes mellitus Social History Social History Smoking status: Former smoker Alcohol intake: current Drinks per week: 7 Substance use: never Spiritual care concerns: No Meds Home Medications and Allergies Home Medications Medication Instructions Recorded Confirmed Type aspirin [Adult Aspirin EC Low 81 mg PO DAILY 10/14/21 10/14/21 History Strength] atorvastatin 40 mg PO HS 10/14/21 10/14/21 History carvedilol 6.25 mg PO Q12H 10/14/21 10/14/21 History cyclobenzaprine 10 mg PO TID PRN 10/14/21 10/14/21 History insulin aspart U-100 [Novolog 10 unit SUBCUT TI
[2021-10-20 11:51] LABS: Glucose Point of Care 189 mg/dl (65-105)
--- NOTE | 2021-10-20 13:08 | PM.PNNEP ---
Progress Note: A&P Assessment and Plan (1) Acute kidney injury: Code(s): N17.9 - Acute kidney failure, unspecified Status: Acute Assessment and Plan: slow improvement noted OSH labs reviewed - admitted to [facility] in August 2021 with EDUARDO with discharge creatinine 1.02mg/dl records indicate a combination of ATN from hypotension and obstruction to blame for EDUARDO peak/plateau creatinine of 4.6mg/dl evaluation to date: renal ultrasound normal urine electrolytes suggest prerenal azotemia urine eosinophils negative mild proteinuria suspect due to infection [UTI + bacteremia(?) + pneumonia], relative hypotension and concurrent use of ELIEEN-I/NSAIDs follow trend of repeat labs and UOP (2) Altered mental status: Code(s): R41.82 - Altered mental status, unspecified Status: Acute Assessment and Plan: slow improvement noted possibly related to EDUARDO +/- uremia infection may be playing a role as well follow trend of mentation with current interventions (3) Healthcare-associated pneumonia: Code(s): J18.9 - Pneumonia, unspecified organism Status: Acute Assessment and Plan: suggested by admission imaging on IV antibioitcs follow culture date (4) Acute UTI: Code(s): N39.0 - Urinary tract infection, site not specified Status: Acute Assessment and Plan: urine culture with Pseudomonas on antibiotics (5) Hypertension: Code(s): I10 - Essential (primary) hypertension Status: Chronic Assessment and Plan: reasonable control follow trend of hemodynamics (6) Diabetes mellitus: Code(s): E11.9 - Type 2 diabetes mellitus without complications Status: Chronic Assessment and Plan: follow accuchecks on SSI and Lantus Will continue to follow. Subjective Date/time seen: 10/20/21 13:08 No new issues or problems to report at this time; no apparent distress voiced currently; renal function continues to improve in association with good urine output; no events overnight or earlier this AM. Exam Narrative: General: elderly male in NAD Heart: normal S1 and S2; no rub Lungs: clear anteriorly, decreased at bases Abdomen: soft, nontender, nondistended, positive bowel sounds Extremities: no cyanosis or clubbing; no edema Skin: warm and dry Objective Data Vital Signs Vital Signs: Vital Signs Temp Pulse Resp BP Pulse Ox 10/20/21 12:32 70 18 10/20/21 12:25 75 18 10/20/21 10:00 94 10/20/21 08:38 75 18 10/20/21 08:31 93 10/20/21 08:29 73 18 10/20/21 08:01 90 10/20/21 07:50 90 96 10/20/21 06:00 36.3 C L 64 20 135/55 L 98 10/20/21 03:42 73 18 10/20/21 03:34 72 18 10/20/21 00:17 76 16 10/20/21 00:10 80 16 10/19/21 22:00 36.1 C L 84 20 132/84 99 10/19/21 21:32 84 10/19/21 19:37 84 16 10/19/21 19:29 83 16 93 Intake/Output Intake/Output: Intake & Output 10/17/21 10/18/21 10/19/21 10/20/21 23:59 23:59 23:59 23:59 Intake Total 0352 781 8790 1040 Output Total 800 1200 1600 1100 Balance 1100 -450 2075 -60 Meds/Results Medications: Active Medications Generic Name Dose Route Start Last Admin Trade Name Freq PRN Reason Stop Dose Admin Albuterol 2.5 mg 10/15/21 04:00 10/20/21 15:52 Albuterol Sulfate Neb 2.5 Mg/0.5 Ml Inh INHALATION 2.5 mg Q4HRT MIRTHA Administration Aspirin 81 mg 10/15/21 09:00 10/20/21 08:00 Aspirin 81 Mg Enteric Tablet PO 81 mg DAILY MIRTHA Administration Atorvastatin Calcium 40 mg 10/15/21 21:00 10/19/21 21:32 Atorvastatin 40 Mg Tablet PO 40 mg HS MIRTHA Administration Carvedilol 6.25 mg 10/15/21 09:00 10/20/21 08:01 Carvedilol 6.25 Mg Tablet PO 6.25 mg Q12HR MIRTHA Administration Dextrose 12.5 gm 10/18/21 10:39 Dextrose 50% 25 Gm/50 Ml Syringe IV PUSH PRN PRN Hypoglycemia Protocol
--- NOTE | 2021-10-20 13:08 | P.PNNP_ITS ---
Progress Note: A&P Assessment and Plan (1) Acute kidney injury: Code(s): N17.9 - Acute kidney failure, unspecified Status: Acute Assessment and Plan: * slow improvement noted * OSH labs reviewed - admitted to [facility] in August 2021 with EDUARDO with discharge creatinine 1.02mg/dl * records indicate a combination of ATN from hypotension and obstruction to blame for EDUARDO * peak/plateau creatinine of 4.6mg/dl * evaluation to date: * renal ultrasound normal * urine electrolytes suggest prerenal azotemia * urine eosinophils negative * mild proteinuria * suspect due to infection [UTI + bacteremia(?) + pneumonia], relative hypotension and concurrent use of EILEEN-I/NSAIDs * follow trend of repeat labs and UOP (2) Altered mental status: Code(s): R41.82 - Altered mental status, unspecified Status: Acute Assessment and Plan: * slow improvement noted * possibly related to EDUARDO +/- uremia * infection may be playing a role as well * follow trend of mentation with current interventions (3) Healthcare-associated pneumonia: Code(s): J18.9 - Pneumonia, unspecified organism Status: Acute Assessment and Plan: * suggested by admission imaging * on IV antibioitcs * follow culture date (4) Acute UTI: Code(s): N39.0 - Urinary tract infection, site not specified Status: Acute Assessment and Plan: * urine culture with Pseudomonas * on antibiotics (5) Hypertension: Code(s): I10 - Essential (primary) hypertension Status: Chronic Assessment and Plan: * reasonable control * follow trend of hemodynamics (6) Diabetes mellitus: Code(s): E11.9 - Type 2 diabetes mellitus without complications Status: Chronic Assessment and Plan: * follow accuchecks * on SSI and Lantus Will continue to follow. Subjective Date/time seen: 10/20/21 13:08 No new issues or problems to report at this time; no apparent distress voiced currently; renal function continues to improve in association with good urine output; no events overnight or earlier this AM. Exam Narrative: General: elderly male in NAD Heart: normal S1 and S2; no rub Lungs: clear anteriorly, decreased at bases Abdomen: soft, nontender, nondistended, positive bowel sounds Extremities: no cyanosis or clubbing; no edema Skin: warm and dry Objective Data Vital Signs Vital Signs: Vital Signs Temp Pulse Resp BP Pulse Ox 10/20/21 12:32 70 18 10/20/21 12:25 75 18 10/20/21 10:00 94 10/20/21 08:38 75 18 10/20/21 08:31 93 10/20/21 08:29 73 18 10/20/21 08:01 90 10/20/21 07:50 90 96 10/20/21 06:00 36.3 C L 64 20 135/55 L 98 10/20/21 03:42 73 18 10/20/21 03:34 72 18 10/20/21 00:17 76 16 10/20/21 00:10 80 16 10/19/21 22:00 36.1 C L 84 20 132/84 99 10/19/21 21:32 84 10/19/21 19:37 84 16 10/19/21 19:29 83 16 93 Intake/Output Intake/Output: Intake & Output 10/17/21 10/18/21 10/19/21 10/20/21 23:59 23:59 23:59 23:59 Intake Total 8921 729 2628 1040 Output Total 800 1200 1600 1100 Balance 1100 -450 2075 -60
--- NOTE | 2021-10-20 13:16 | PM.IMPN ---
Progress Note: A&P Assessment and Plan (1) Rectal bleeding: Code(s): K62.5 - Hemorrhage of anus and rectum Status: Acute Assessment and Plan: Patient had one episode of bright red blood per rectum per RN. Probably from hemorroids. Hgb noted and trending down. Iron studies noted. GI consulted and appreciate their input. Follow HH. (2) Altered mental status: Code(s): R41.82 - Altered mental status, unspecified Status: Acute Assessment and Plan: Patient with altered mental status present on admission that worsened. CT brain showing no acute process but does show atrophy. Ammonia, B12, folate within normal limits. TSH low but FT4 normal. [place] related to sepsis and less so, the uremia causing a metabolic encephalopathy. Mental status better with treatment of his infection. Uremia slowly improving. He is having confusion at night so may have dementia. Follow. (3) Acute respiratory failure: Code(s): J96.00 - Acute respiratory failure, unspecified whether with hypoxia or hypercapnia Status: Acute Assessment and Plan: Blood gas showed 7.33/30/67 on 6 L high-flow. Patient was placed on BiPAP. CXR 10/19 showing moderate size right and small left pleural effusions and stable airspace opacities of the mid and lower lung zones. Most likely acute respiratory failure related to pneumonia but cannot exclude fluid overload from oliguric renal failure. Lower extremity venous Dopplers were negative. MBS showing patient can swallow safely. Weaned O2 to room air. Lasix? (4) Healthcare-associated pneumonia: Code(s): J18.9 - Pneumonia, unspecified organism Status: Acute Assessment and Plan: Patient presents with weakness. Found to have respiratory distress. Chest x-ray shows cardiomegaly, mild pulmonary edema and bibasilar airspace opacities. No fevers but white count was elevated. Patient was started on vancomycin, cefepime and Zithromax. BCx growing Staph Epi (1of2 bottles) probably contaminate but sensitive to Vanco. UCx growing Pseudomonas sensitive to Cefepime. WBC normal now. Stop Azithromycin. Vanco and Cefepime started 10/15; stop abx after tomorrow. (5) Acute kidney injury: Code(s): N17.9 - Acute kidney failure, unspecified Status: Acute Assessment and Plan: Baseline creatinine 1.02. Naproxen and lisinopril were held on admission. Renal US showing normal kidneys. UEos negative. Tino 47. Creatinine peaked at 4.6 but better today at 1.5. BUN up to 104 but trending down now. Suspect ATN from the sepsis and pre-renal from dehydration. Urine output is better with 1600mL yesterday. Nephrology following and appreciate their input. Will stop IV fluids. CXR showing moderate sized R>L pleural effusions and airspace opacities. Suspect pulmonary edema. Add Lasix? (6) Acute exacerbation of congestive heart failure: Code(s): I50.9 - Heart failure, unspecified Status: Acute Assessment and Plan: Patient to BNP was 3000. Chest x-ray as mentioned above. Patient may have CHF exacerbation or possibly fluid overload from oliguric renal failure. Patient has not received diuretics since admission. Will stop IV fluids. Add Lasix. (7) Acute UTI: Code(s): N39.0 - Urinary tract infection, site not specified Status: Acute Assessment and Plan: UA noted. Urine culture growing Pseudomonas. Complicated UTI with chronic indwelling Newton that was changed out in ED. Narrow abx. (8) Diabetes mellitus: Code(s): E11.9 - Type 2 diabetes mellitus without complications Status: Chronic Assessment and Plan: The patient's blood glucose was reviewed on 10/20 Glucose is 183 this morning. Continue AccuCheks covering with sliding scale. Hypoglycemia protocol available as needed. Continue Lantus and mealtime insulin (9) Muscular deconditioning: Code(s): R29.898 - Other symptoms and signs involving the musculoskeletal
[2021-10-20 13:53] LABS: Chloride Rand Ur 33 mmol/L (32-290); Chloride/Creatinine Rand Ur 17 (23-275); Creatinine Random Urine 199 mg/dL (20-320)
[2021-10-20] MEDS: FUROSEMIDE INJ 40 MG/4 ML VIAL 20 MG IV PUSH (14:26)
[2021-10-20 16:20] LABS: Glucose Point of Care 261 mg/dl (65-105)
[2021-10-20] MEDS: VANCOMYCIN HCL 1,000 MG in SODIUM CHLORIDE 0.9% IV 250 ML 100 MG IVPB (16:20)
[2021-10-20] MEDS: ATORVASTATIN 40 MG TABLET PO (20:21)
[2021-10-20 20:46] LABS: Glucose Point of Care 168 mg/dl (65-105)
[2021-10-20] MEDS: INSULIN GLARGINE (*BKC) 100 UNITS/ML 12 UNITS SUB-Q (21:08)
[2021-10-21] VITALS (16 sets, daily range): BP systolic 113–157; BP diastolic 60–68; PULSE 68–82; RESP 14–96; TEMP 36.8–36.9; O2SAT 18–96
[2021-10-21] MEDS: IPRATROPIUM BR 0.02% INH SOLN 0.5 MG/2.5 ML VIAL INHALATION ×4 (00:28→21:32)
[2021-10-21] MEDS: ALBUTEROL SULFATE NEB 2.5 MG/0.5 ML INH INHALATION ×4 (00:28→21:32)
[2021-10-21] MEDS: LEVOTHYROXINE SODIUM 88 MCG TABLET PO (05:41)
[2021-10-21 06:00] LABS: Basophils Percent Auto 0.4 % (0.2-1.2); Eosinophils Absolute Auto 0.3 K/mm3 (0-0.3); Eosinophils Percent Auto 3.5 % (0-4.4); Hematocrit 27.8 % (42.0-52.0); Hemoglobin 9.9 g/dL (14.0-18.0); Immature Granulocyte Absolute 0.13 K/mm3 (0.00-0.031); Immature Granulocyte Percent A 1.7 % (0-0.5); Lymphocytes Absolute Auto 1.23 K/mm3 (0.9-3.2); Mean Corpuscular HGB Conc 35.6 g/dl (32-36); Mean Corpuscular Hemoglobin 32.1 pg (26-34); Mean Corpuscular Volume 90.3 fl (80-100); Mean Platelet Volume 9.2 fl (7.4-10.4); Monocytes Absolute Auto 0.6 K/mm3 (0.1-0.6); Monocytes Percent Auto 8.2 % (2.6-8.5); Neutrophils Absolute Auto 5.4 K/mm3 (1.3-6.7); Neutrophils Percent Auto 70.2 % (45.5-73.1); Platelet Count Result 211 k/mm3 (150-375); Red Blood Count 3.08 M/mm3 (4.6-6.20); Red Cell Distribution Width 16.1 % (11.5-14.5); White Blood Count 7.7 K/mm3 (4.5-10.0)
[2021-10-21 06:19] LABS: Alanine Aminotransferase 10 U/L (6-50); Albumin Level 2.3 g/dL (3.5-5.1); Alkaline Phosphatase 164 U/L (38-126); Anion Gap 1 mmol/L (8-16); Aspartate Amino Transferase 21 U/L (17-59); Bilirubin,Total 0.6 mg/dL (0.2-1.3); Blood Urea Nitrogen 56 mg/dL (9-20); CRP 1.5 mg/dL (<1.0); Calcium 7.7 mg/dL (8.4-10.2); Carbon Dioxide 33 mmol/L (22-30); Chloride 102 mmol/L (98-107); Estimated CRCL calculation 37 ml/min; Estimated Glomerular Filt Rate 49; Glucose 145 mg/dL (65-110); Potassium 3.9 mmol/L (3.4-5.0); Sodium 136 mmol/L (137-145)
[2021-10-21 07:43] LABS: Glucose Point of Care 144 mg/dl (65-105)
[2021-10-21] MEDS: carvediloL 6.25 MG TABLET PO ×2 (09:03→20:41)
[2021-10-21] MEDS: TAMSULOSIN HCL 0.4 MG CAPSULE 0.8 MG PO (09:03)
[2021-10-21] MEDS: ASPIRIN 81 MG ENTERIC TABLET PO (09:04)
[2021-10-21] MEDS: INSULIN ASPART (*BKC) 100 UNITS/ML SUB-Q ×3 (09:04→16:59)
--- NOTE | 2021-10-21 10:48 | PCNFU ---
Nutrition Follow-Up Complete: Inadequate oral intake R/T decreased appetite AEB pt report Goal: Pt to meet >50% of estimated nutritional needs Patient is progressing towards goal. We will continue current goal. Pt current nutrition is Soft and Bite Sized, Level 6/DBCC. Last recorded weight is 71.5 kg, up from 65 kg on admit. Bowel Motility:+Bm reported 10/21 Labs Reviewed:Glu 145, GFR 49, Na 136, Hct 27.8,Hgb 9.9 Meds Noted:Synthroid, Flomax, Atrovent, NovoLog, Maxipime, Coreg, Albuterol Skin:WNL Additional Notes: Patient seen today for nutrition follow up. Oral Intake has improved, 60% for breakfast today. Overall intake 25-90% of meals. Patient is also receiving diet supplements of Glucerna shakes BID providing an additional 220 kcals and 10 gms protein. Agree with diet orders. Will monitor labs, medication, wt, and reported intake every 5 days.
[2021-10-21 11:27] LABS: Glucose Point of Care 174 mg/dl (65-105)
--- NOTE | 2021-10-21 12:42 | WPDGIPROGNO ---
Progress Note: A&P Assessment and Plan (1) Rectal bleeding: Code(s): K62.5 - Hemorrhage of anus and rectum Status: Acute Assessment and Plan: No additional rectal bleeding described. This appears be most consistent with hemorrhoidal bleeding. Although other etiologies cannot definitively be excluded. Would recommend conservative management given his comorbid disease is present. (2) Anemia: Code(s): D64.9 - Anemia, unspecified Status: Acute Assessment and Plan: Hemoglobin stable. Mild anemia noted. Low iron, low TIBC, elevated ferritin suggest chronic disease. (3) Diabetes mellitus: Code(s): E11.9 - Type 2 diabetes mellitus without complications Status: Chronic (4) Acute respiratory failure: Code(s): J96.00 - Acute respiratory failure, unspecified whether with hypoxia or hypercapnia Status: Acute (5) Acute kidney injury: Code(s): N17.9 - Acute kidney failure, unspecified Status: Acute (6) Pneumonia: Qualifiers: Laterality: unspecified laterality Lung location: unspecified part of lung Pneumonia type: due to unspecified organism Qualified Code(s): J18.9 - Pneumonia, unspecified organism Code(s): J18.9 - Pneumonia, unspecified organism Status: Acute Subjective Date/time seen: 10/21/21 12:42 Patient remains somewhat weak on supplemental oxygen. No obvious bleeding described. Review of Systems Review of Systems: All systems reviewed & are unremarkable except as noted in HPI and below Exam Narrative: Physical exam patient is alert. Supplemental oxygen in place physical exam reveals lungs with bilateral crackles. Abdomen bowel sounds present soft no localized tenderness. Objective Data Vital Signs Vital Signs: Vital Signs - 24 hr 10/20/21 14:00 10/20/21 15:00 10/20/21 15:10 Temperature 96.1 F L Pulse Rate 79 Respiratory Rate 16 Blood Pressure 117/59 L Pulse Oximetry 78 L 75 L 93 10/20/21 15:53 10/20/21 15:59 10/20/21 19:29 Temperature Pulse Rate 70 72 Respiratory Rate 16 16 Blood Pressure Pulse Oximetry 87 L 10/20/21 19:30 10/20/21 19:42 10/20/21 20:21 Temperature Pulse Rate 71 75 72 Respiratory Rate 18 16 Blood Pressure Pulse Oximetry 10/20/21 22:00 10/21/21 00:26 10/21/21 00:33 Temperature 98.1 F Pulse Rate 78 80 82 Respiratory Rate 16 16 16 Blood Pressure 159/72 H Pulse Oximetry 94 10/21/21 04:14 10/21/21 04:21 10/21/21 06:00 Temperature 98.2 F Pulse Rate 75 79 77 Respiratory Rate 14 14 18 Blood Pressure 139/64 Pulse Oximetry 96 10/21/21 09:10 10/21/21 09:17 Temperature Pulse Rate 75 77 Respiratory Rate 14 14 Blood Pressure Pulse Oximetry 95 Intake/Output Intake/Output: Intake & Output 10/18/21 10/19/21 10/20/21 10/21/21 23:59 23:59 23:59 23:59 Intake Total 750 3675 1260 990 Output Total 1200 1600 2400 900 Balance -450 2075 -1140 90 Meds/Results Medications: Active Medications Generic Name Dose Route Start Last Admin Trade Name Freq PRN Reason Stop Dose Admin Albuterol 2.5 mg 10/21/21 08:00 10/21/21 09:16 Albuterol Sulfate Neb 2.5 Mg/0.5 Ml Inh INHALATION 2.5 mg [id number] MIRTHA Administration Aspirin 81 mg 10/15/21 09:00 10/21/21 09:04 Aspirin 81 Mg Enteric Tablet PO 81 mg DAILY MIRTHA Administration Atorvastatin Calcium 40 mg 10/15/21 21:00 10/20/21 20:21 Atorvastatin 40 Mg Tablet PO 40 mg HS MIRTHA Administration Carvedilol 6.25 mg 10/15/21 09:00 10/21/21 09:03 Carvedilol 6.25 Mg Tablet PO 6.25 mg Q12HR MIRTHA Administration Dextrose 12.5 gm 10/18/21 10:39 Dextrose 50% 25 Gm/50 Ml Syringe IV PUSH PRN PRN Hypoglycemia Protocol Glucagon 1 mg 10/18/21 10:39 Glucagon For Inj 1 Mg Vial IM PRN PRN Hypoglycemia Protocol Glucose 15 gm 10/18/21 10:39 Glucose Oral Gel 15 Gm Of Glucse In 37.5 Gm Tube PO PRN PRN
--- NOTE | 2021-10-21 14:59 | PC.NURSE ---
Addendum entered by Sania Worley RN 10/21/21 15:00: From 7am-7pm Original Note: On 10/21/21, the RN Karla Guzmán, provided care and completed [facility] documentation on this patient. I have reviewed the RN's documentation and agree with the findings.
--- NOTE | 2021-10-21 15:25 | P.PNNP_ITS ---
Progress Note: A&P Assessment and Plan (1) Acute kidney injury: Code(s): N17.9 - Acute kidney failure, unspecified Status: Acute Assessment and Plan: * slow improvement noted * OSH labs reviewed - admitted to [facility] in August 2021 with EDUARDO with discharge creatinine 1.02mg/dl * records indicate a combination of ATN from hypotension and obstruction to blame for EDUARDO * peak/plateau creatinine of 4.6mg/dl * evaluation to date: * renal ultrasound normal * urine electrolytes suggest prerenal azotemia * urine eosinophils negative * mild proteinuria * suspect due to infection [UTI + bacteremia(?) + pneumonia], relative hypotension and concurrent use of EILEEN-I/NSAIDs * diuretics PRN given CXR findings * follow trend of repeat labs and UOP (2) Altered mental status: Code(s): R41.82 - Altered mental status, unspecified Status: Acute Assessment and Plan: * slow improvement noted * possibly related to EDUARDO +/- uremia * suspect infection was the major issue/problem * follow trend of mentation with current interventions (3) Healthcare-associated pneumonia: Code(s): J18.9 - Pneumonia, unspecified organism Status: Acute Assessment and Plan: * suggested by admission imaging * on IV antibioitcs * follow culture date (4) Acute UTI: Code(s): N39.0 - Urinary tract infection, site not specified Status: Acute Assessment and Plan: * urine culture with Pseudomonas * on antibiotics (5) Hypertension: Code(s): I10 - Essential (primary) hypertension Status: Chronic Assessment and Plan: * reasonable control * follow trend of hemodynamics (6) Diabetes mellitus: Code(s): E11.9 - Type 2 diabetes mellitus without complications Status: Chronic Assessment and Plan: * follow accuchecks * on SSI and Lantus Will continue to follow. Subjective Date/time seen: 10/21/21 15:25 Mentation seems better but still has some intermittent confusion at times; renal function improving and tolerated diuretic therapy yesterday; no other apparent issues or problems noted at this time; no events overnight or earlier this morning. Exam Narrative: General: elderly male in NAD Heart: normal S1 and S2; no rub Lungs: clear anteriorly, decreased at bases Abdomen: soft, nontender, nondistended, positive bowel sounds Extremities: no cyanosis or clubbing; no edema Skin: warm and intact Objective Data Vital Signs Vital Signs: Vital Signs Temp Pulse Resp BP Pulse Ox 10/21/21 14:09 36.9 C 74 16 113/60 92 10/21/21 14:05 94 10/21/21 14:00 87 L 10/21/21 12:35 96 10/21/21 09:17 77 14 95 10/21/21 09:10 75 14 10/21/21 09:00 96 10/21/21 06:00 36.8 C 77 18 139/64 96 10/21/21 04:21 79 14 10/21/21 04:14 75 14 10/21/21 00:33 82 16 10/21/21 00:26 80 16 10/20/21 22:00 36.7 C 78 16 159/72 H 94 10/20/21 20:21 72 10/20/21 19:42 75 16 10/20/21 19:30 71 18 10/20/21 19:29 87 L Intake/Output Intake/Output: Intake & Output 10/18/21 10/19/21 10/20/21 10/21/21 23:59 23:59 23:59 23:59 Intake Total 750
--- NOTE | 2021-10-21 15:25 | PM.PNNEP ---
Progress Note: A&P Assessment and Plan (1) Acute kidney injury: Code(s): N17.9 - Acute kidney failure, unspecified Status: Acute Assessment and Plan: slow improvement noted OSH labs reviewed - admitted to [facility] in August 2021 with EDUARDO with discharge creatinine 1.02mg/dl records indicate a combination of ATN from hypotension and obstruction to blame for EDUARDO peak/plateau creatinine of 4.6mg/dl evaluation to date: renal ultrasound normal urine electrolytes suggest prerenal azotemia urine eosinophils negative mild proteinuria suspect due to infection [UTI + bacteremia(?) + pneumonia], relative hypotension and concurrent use of EILEEN-I/NSAIDs diuretics PRN given CXR findings follow trend of repeat labs and UOP (2) Altered mental status: Code(s): R41.82 - Altered mental status, unspecified Status: Acute Assessment and Plan: slow improvement noted possibly related to EDUARDO +/- uremia suspect infection was the major issue/problem follow trend of mentation with current interventions (3) Healthcare-associated pneumonia: Code(s): J18.9 - Pneumonia, unspecified organism Status: Acute Assessment and Plan: suggested by admission imaging on IV antibioitcs follow culture date (4) Acute UTI: Code(s): N39.0 - Urinary tract infection, site not specified Status: Acute Assessment and Plan: urine culture with Pseudomonas on antibiotics (5) Hypertension: Code(s): I10 - Essential (primary) hypertension Status: Chronic Assessment and Plan: reasonable control follow trend of hemodynamics (6) Diabetes mellitus: Code(s): E11.9 - Type 2 diabetes mellitus without complications Status: Chronic Assessment and Plan: follow accuchecks on SSI and Lantus Will continue to follow. Subjective Date/time seen: 10/21/21 15:25 Mentation seems better but still has some intermittent confusion at times; renal function improving and tolerated diuretic therapy yesterday; no other apparent issues or problems noted at this time; no events overnight or earlier this morning. Exam Narrative: General: elderly male in NAD Heart: normal S1 and S2; no rub Lungs: clear anteriorly, decreased at bases Abdomen: soft, nontender, nondistended, positive bowel sounds Extremities: no cyanosis or clubbing; no edema Skin: warm and intact Objective Data Vital Signs Vital Signs: Vital Signs Temp Pulse Resp BP Pulse Ox 10/21/21 14:09 36.9 C 74 16 113/60 92 10/21/21 14:05 94 10/21/21 14:00 87 L 10/21/21 12:35 96 10/21/21 09:17 77 14 95 10/21/21 09:10 75 14 10/21/21 09:00 96 10/21/21 06:00 36.8 C 77 18 139/64 96 10/21/21 04:21 79 14 10/21/21 04:14 75 14 10/21/21 00:33 82 16 10/21/21 00:26 80 16 10/20/21 22:00 36.7 C 78 16 159/72 H 94 10/20/21 20:21 72 10/20/21 19:42 75 16 10/20/21 19:30 71 18 10/20/21 19:29 87 L Intake/Output Intake/Output: Intake & Output 10/18/21 10/19/21 10/20/21 10/21/21 23:59 23:59 23:59 23:59 Intake Total 750 3675 1260 990 Output Total 1200 1600 2400 900 Balance -450 2075 -1140 90 Meds/Results Medications: Active Medications Generic Name Dose Route Start Last Admin Trade Name Madhavq PRN Reason Stop Dose Admin Albuterol 2.5 mg 10/21/21 08:00 10/21/21 14:18 Albuterol Sulfate Neb 2.5 Mg/0.5 Ml Inh INHALATION Not Given [id number] [facility] Aspirin 81 mg 10/15/21 09:00 10/21/21 09:04 Aspirin 81 Mg Enteric Tablet PO 81 mg DAILY MIRTHA Administration Atorvastatin Calcium 40 mg 10/15/21 21:00 10/20/21 20:21 Atorvastatin 40 Mg Tablet PO 40 mg HS MIRTHA Administration Carvedilol 6.25 mg 10/15/21 09:00 10/21/21 09:03 Carvedilol 6.25 Mg Tablet PO 6.25 mg Q12HR MIRTHA Administration Dextrose 12.5 gm 10/18/21 10:39 De
--- NOTE | 2021-10-21 15:54 | PM.IMPN ---
Progress Note: A&P Assessment and Plan (1) Rectal bleeding: Code(s): K62.5 - Hemorrhage of anus and rectum Status: Acute Assessment and Plan: Patient had bright red blood per rectum per RN. Hgb stable in the 9-10 range. Probably from hemorrhoids. Iron studies noted and consistent with anemia of chronic disease. GI consulted and appreciate their input. Follow HH. (2) Altered mental status: Code(s): R41.82 - Altered mental status, unspecified Status: Acute Assessment and Plan: Patient with altered mental status present on admission. CT brain showing no acute process but does show atrophy. Ammonia, B12, folate within normal limits. TSH low but FT4 normal. [place] related to sepsis and less so, the uremia causing a metabolic encephalopathy. Mental status better with treatment of his infection. Uremia slowly improving. He has mild confusion still but is having increasing confusion at night so may have dementia with . Much better overall. Follow. (3) Acute respiratory failure: Code(s): J96.00 - Acute respiratory failure, unspecified whether with hypoxia or hypercapnia Status: Acute Assessment and Plan: Blood gas showed 7.33/30/67 on 6 L high-flow. Patient was placed on BiPAP. CXR 10/19 showing moderate size right and small left pleural effusions and stable airspace opacities of the mid and lower lung zones. Most likely acute respiratory failure related to pneumonia but cannot exclude fluid overload from oliguric renal failure. Lower extremity venous Dopplers were negative. MBS showing patient can swallow safely. Weaned O2 to room air. Lasix given once with good UOP. Repeat lasix (4) Healthcare-associated pneumonia: Code(s): J18.9 - Pneumonia, unspecified organism Status: Acute Assessment and Plan: Patient presents with weakness. Found to have respiratory distress. Chest x-ray shows cardiomegaly, mild pulmonary edema and bibasilar airspace opacities. No fevers but white count was elevated to 17K. Patient was started on vancomycin, cefepime and Zithromax. BCx growing Staph Epi (1of2 bottles) probably contaminate but sensitive to Vanco. UCx growing Pseudomonas sensitive to Cefepime. WBC normal now. Completed a course of abx. Abx stopped 10/21. (5) Acute kidney injury: Code(s): N17.9 - Acute kidney failure, unspecified Status: Acute Assessment and Plan: Baseline creatinine 1.02. Naproxen and lisinopril were held on admission. Renal US showing normal kidneys. UEos negative. Tino 47. Creatinine peaked at 4.6 but better today at 1.4. BUN up to 104 but trending down now. Suspect ATN from the sepsis and pre-renal from dehydration. Urine output is better with 2400mL yesterday. Nephrology following and appreciate their input. CXR showing moderate sized R>L pleural effusions and airspace opacities. Suspect component of pulmonary edema. Lasix once yesterday with good response. Will repeat. (6) Acute exacerbation of congestive heart failure: Code(s): I50.9 - Heart failure, unspecified Status: Acute Assessment and Plan: Patient to BNP was 3000. Chest x-ray as mentioned above. Patient may have CHF exacerbation or possibly fluid overload from oliguric renal failure. Lasix once yesterday. Will repeat today. (7) Acute UTI: Code(s): N39.0 - Urinary tract infection, site not specified Status: Acute Assessment and Plan: UA noted. Urine culture growing Pseudomonas. Complicated UTI with chronic indwelling Newton that was changed out in ED. He has completed abx course. (8) Diabetes mellitus: Code(s): E11.9 - Type 2 diabetes mellitus without complications Status: Chronic Assessment and Plan: The patient's blood glucose was reviewed on 10/21 Glucose is 145 this morning. Continue AccuCheks covering with sliding scale. Hypoglycemia protocol available as needed. Continue Lantus and mealtime insul
[2021-10-21 16:21] LABS: Glucose Point of Care 117 mg/dl (65-105)
[2021-10-21] MEDS: FUROSEMIDE INJ 40 MG/4 ML VIAL 20 MG IV PUSH (17:04)
[2021-10-21] MEDS: INSULIN GLARGINE (*BKC) 100 UNITS/ML 12 UNITS SUB-Q (20:39)
[2021-10-21] MEDS: ATORVASTATIN 40 MG TABLET PO (20:40)
[2021-10-21 21:21] LABS: Glucose Point of Care 173 mg/dl (65-105)
[2021-10-22] MEDS: LEVOTHYROXINE SODIUM 88 MCG TABLET PO (05:36)
[2021-10-22 05:48] LABS: Anion Gap 2 mmol/L (8-16); Blood Urea Nitrogen 46 mg/dL (9-20); Calcium 7.9 mg/dL (8.4-10.2); Carbon Dioxide 31 mmol/L (22-30); Chloride 102 mmol/L (98-107); Estimated CRCL calculation 42 ml/min; Estimated Glomerular Filt Rate 58; Glucose 160 mg/dL (65-110); Potassium 4.2 mmol/L (3.4-5.0); Sodium 135 mmol/L (137-145)
[2021-10-22 05:51] LABS: Hematocrit 31.9 % (42.0-52.0); Hemoglobin 10.1 g/dL (14.0-18.0); Mean Corpuscular HGB Conc 31.7 g/dl (32-36); Mean Corpuscular Hemoglobin 29.4 pg (26-34); Mean Platelet Volume 9.6 fl (7.4-10.4); Platelet Count Result 232 k/mm3 (150-375); Red Blood Count 3.43 M/mm3 (4.6-6.20); Red Cell Distribution Width 16.6 % (11.5-14.5); White Blood Count 8.3 K/mm3 (4.5-10.0)
[2021-10-22 06:00] VITALS: BP 142/52; PULSE 78; RESP 16; TEMP 36.3; O2SAT 94
[2021-10-22 08:16] LABS: Glucose Point of Care 146 mg/dl (65-105)
[2021-10-22 08:45] VITALS: PULSE 80
[2021-10-22] MEDS: carvediloL 6.25 MG TABLET PO (08:45)
[2021-10-22] MEDS: ASPIRIN 81 MG ENTERIC TABLET PO (08:45)
[2021-10-22] MEDS: TAMSULOSIN HCL 0.4 MG CAPSULE 0.8 MG PO (08:45)
[2021-10-22] MEDS: ALBUTEROL SULFATE NEB 2.5 MG/0.5 ML INH INHALATION ×2 (08:56→13:37)
[2021-10-22 08:57] VITALS: PULSE 80; RESP 16
[2021-10-22] MEDS: IPRATROPIUM BR 0.02% INH SOLN 0.5 MG/2.5 ML VIAL INHALATION ×2 (08:57→13:37)
[2021-10-22 08:59] VITALS: O2SAT 92
[2021-10-22] MEDS: INSULIN ASPART (*BKC) 100 UNITS/ML SUB-Q ×3 (09:04→12:51)
[2021-10-22 09:06] VITALS: PULSE 82; RESP 16
--- NOTE | 2021-10-22 11:51 | P.PNNP_ITS ---
Progress Note: A&P Assessment and Plan (1) Acute kidney injury: Code(s): N17.9 - Acute kidney failure, unspecified Status: Acute Assessment and Plan: * slow improvement noted * OSH labs reviewed - admitted to [facility] in August 2021 with EDUARDO with discharge creatinine 1.02mg/dl * records indicate a combination of ATN from hypotension and obstruction to blame for EDUARDO * peak/plateau creatinine of 4.6mg/dl * evaluation to date: * renal ultrasound normal * urine electrolytes suggest prerenal azotemia * urine eosinophils negative * mild proteinuria * suspect due to infection [UTI + bacteremia(?) + pneumonia], relative hypotension and concurrent use of EILEEN-I/NSAIDs * diuretics PRN given CXR findings * follow trend of repeat labs and UOP (2) Altered mental status: Code(s): R41.82 - Altered mental status, unspecified Status: Acute Assessment and Plan: * slow improvement noted * possibly related to EDUARDO +/- uremia * suspect infection was the major issue/problem * follow trend of mentation with current interventions (3) Healthcare-associated pneumonia: Code(s): J18.9 - Pneumonia, unspecified organism Status: Acute Assessment and Plan: * suggested by admission imaging * on IV antibioitcs * follow culture date (4) Acute UTI: Code(s): N39.0 - Urinary tract infection, site not specified Status: Acute Assessment and Plan: * urine culture with Pseudomonas * on antibiotics (5) Hypertension: Code(s): I10 - Essential (primary) hypertension Status: Chronic Assessment and Plan: * reasonable control * follow trend of hemodynamics (6) Diabetes mellitus: Code(s): E11.9 - Type 2 diabetes mellitus without complications Status: Chronic Assessment and Plan: * follow accuchecks * on SSI and Lantus Not much else to add - will continue to follow intermittently. Subjective Date/time seen: 10/22/21 11:51 No new issues or problems to report at this time; at bedside and we discussed the situation; no events overnight; asking me about potential discharge. Exam Narrative: General: elderly male in NAD Heart: normal S1 and S2; no rub Lungs: clear anteriorly, decreased at bases Abdomen: soft, nontender, nondistended, positive bowel sounds Extremities: no cyanosis or clubbing; no edema Skin: warm and intact Objective Data Vital Signs Vital Signs: Vital Signs Temp Pulse Resp BP Pulse Ox 10/22/21 08:59 92 10/22/21 08:57 80 16 10/22/21 08:45 80 10/22/21 06:00 36.3 C L 78 16 142/52 H 94 10/21/21 22:00 36.8 C 75 96 H 157/68 H 18 L 10/21/21 21:40 82 16 10/21/21 21:33 78 16 91 10/21/21 20:41 68 10/21/21 14:09 36.9 C 74 16 113/60 92 10/21/21 14:05 94 10/21/21 14:00 87 L 10/21/21 12:35 96 Intake/Output Intake/Output: Intake & Output 10/19/21 10/20/21 10/21/21 10/22/21 23:59 23:59 23:59 23:59 Intake Total 3675 1260 1090 700 Output Total 1600 2400 1900 900 Balance 3385 -3756 -810 -200 Meds/Results Medications: Active Medications Generic Name Dose Route Sta
--- NOTE | 2021-10-22 11:51 | PM.PNNEP ---
Progress Note: A&P Assessment and Plan (1) Acute kidney injury: Code(s): N17.9 - Acute kidney failure, unspecified Status: Acute Assessment and Plan: slow improvement noted OSH labs reviewed - admitted to [facility] in August 2021 with EDUARDO with discharge creatinine 1.02mg/dl records indicate a combination of ATN from hypotension and obstruction to blame for EDUARDO peak/plateau creatinine of 4.6mg/dl evaluation to date: renal ultrasound normal urine electrolytes suggest prerenal azotemia urine eosinophils negative mild proteinuria suspect due to infection [UTI + bacteremia(?) + pneumonia], relative hypotension and concurrent use of EILEEN-I/NSAIDs diuretics PRN given CXR findings follow trend of repeat labs and UOP (2) Altered mental status: Code(s): R41.82 - Altered mental status, unspecified Status: Acute Assessment and Plan: slow improvement noted possibly related to EDUARDO +/- uremia suspect infection was the major issue/problem follow trend of mentation with current interventions (3) Healthcare-associated pneumonia: Code(s): J18.9 - Pneumonia, unspecified organism Status: Acute Assessment and Plan: suggested by admission imaging on IV antibioitcs follow culture date (4) Acute UTI: Code(s): N39.0 - Urinary tract infection, site not specified Status: Acute Assessment and Plan: urine culture with Pseudomonas on antibiotics (5) Hypertension: Code(s): I10 - Essential (primary) hypertension Status: Chronic Assessment and Plan: reasonable control follow trend of hemodynamics (6) Diabetes mellitus: Code(s): E11.9 - Type 2 diabetes mellitus without complications Status: Chronic Assessment and Plan: follow accuchecks on SSI and Lantus Not much else to add - will continue to follow intermittently. Subjective Date/time seen: 10/22/21 11:51 No new issues or problems to report at this time; at bedside and we discussed the situation; no events overnight; asking me about potential discharge. Exam Narrative: General: elderly male in NAD Heart: normal S1 and S2; no rub Lungs: clear anteriorly, decreased at bases Abdomen: soft, nontender, nondistended, positive bowel sounds Extremities: no cyanosis or clubbing; no edema Skin: warm and intact Objective Data Vital Signs Vital Signs: Vital Signs Temp Pulse Resp BP Pulse Ox 10/22/21 08:59 92 10/22/21 08:57 80 16 10/22/21 08:45 80 10/22/21 06:00 36.3 C L 78 16 142/52 H 94 10/21/21 22:00 36.8 C 75 96 H 157/68 H 18 L 10/21/21 21:40 82 16 10/21/21 21:33 78 16 91 10/21/21 20:41 68 10/21/21 14:09 36.9 C 74 16 113/60 92 10/21/21 14:05 94 10/21/21 14:00 87 L 10/21/21 12:35 96 Intake/Output Intake/Output: Intake & Output 10/19/21 10/20/21 10/21/21 10/22/21 23:59 23:59 23:59 23:59 Intake Total 3675 1260 1090 700 Output Total 1600 2400 1900 900 Balance 9999 -6778 -810 -200 Meds/Results Medications: Active Medications Generic Name Dose Route Start Last Admin Trade Name Freq PRN Reason Stop Dose Admin Albuterol 2.5 mg 10/21/21 08:00 10/22/21 08:56 Albuterol Sulfate Neb 2.5 Mg/0.5 Ml Inh INHALATION 2.5 mg [id number] MIRTHA Administration Aspirin 81 mg 10/15/21 09:00 10/22/21 08:45 Aspirin 81 Mg Enteric Tablet PO 81 mg DAILY MIRTHA Administration Atorvastatin Calcium 40 mg 10/15/21 21:00 10/21/21 20:40 Atorvastatin 40 Mg Tablet PO 40 mg HS MIRTHA Administration Carvedilol 6.25 mg 10/15/21 09:00 10/22/21 08:45 Carvedilol 6.25 Mg Tablet PO 6.25 mg Q12HR MIRTHA Administration Dextrose 12.5 gm 10/18/21 10:39 Dextrose 50% 25 Gm/50 Ml Syringe IV PUSH PRN PRN Hypoglycemia Protocol Glucagon 1 mg 10/18/21 10:39 Glucagon For Inj 1 Mg Vial IM PRN PRN
--- NOTE | 2021-10-22 12:13 | PM.DS ---
DS: Admitting Diagnosis Discharge Date 10/22/21 Admitting Diagnosis Shortness of breath. DS: Discharge Diagnosis Discharge Diagnosis (1) Rectal bleeding: Code(s): K62.5 - Hemorrhage of anus and rectum Status: Acute Assessment and Plan: Patient had bright red blood per rectum per RN. Hgb remained stable in the 9-10 range. Probably from hemorrhoids. Iron studies noted and consistent with anemia of chronic disease. GI consulted and appreciate their input. Plan for possible further evaluation as outpatient. (2) Altered mental status: Code(s): R41.82 - Altered mental status, unspecified Status: Acute Assessment and Plan: Patient with altered mental status present on admission. CT brain showing no acute process but does show atrophy. Ammonia, B12, folate within normal limits. TSH low but FT4 normal. [place] related to sepsis and less so, the uremia causing a metabolic encephalopathy. Mental status better with treatment of his infection. Uremia slowly improved. He has mild confusion still and has some confusion at night so may have dementia with sundowning. Much better overall. (3) Acute respiratory failure: Code(s): J96.00 - Acute respiratory failure, unspecified whether with hypoxia or hypercapnia Status: Acute Assessment and Plan: Blood gas showed 7.33/30/67 on 6 L high-flow. Patient was placed on BiPAP. CXR 10/19 showing moderate size right and small left pleural effusions and stable airspace opacities of the mid and lower lung zones. Most likely acute respiratory failure related to pneumonia but cannot exclude fluid overload from oliguric renal failure. Lower extremity venous Dopplers were negative for DVT. MBS showing patient can swallow safely. Lasix given with good UOP. Able to wean O2. (4) Healthcare-associated pneumonia: Code(s): J18.9 - Pneumonia, unspecified organism Status: Acute Assessment and Plan: Patient presents with weakness. Found to have respiratory distress. Chest x-ray shows cardiomegaly, mild pulmonary edema and bibasilar airspace opacities. No fevers but white count was elevated to 17K. Patient was started on vancomycin, cefepime and Zithromax. BCx growing Staph Epi (1of2 bottles) probably contaminate but sensitive to Vanco. UCx growing Pseudomonas sensitive to Cefepime. WBC normal now. Completed a course of abx. Abx stopped 10/21. (5) Acute kidney injury: Code(s): N17.9 - Acute kidney failure, unspecified Status: Acute Assessment and Plan: Baseline creatinine 1.02. Naproxen and lisinopril were held on admission. Renal US showing normal kidneys. UEos negative. Tino 47. Creatinine peaked at 4.6 but better today at 1.2. BUN up to 104 but trending down now. Suspect ATN from the sepsis and pre-renal from dehydration. Urine output improved. Nephrology following and appreciate their input. CXR showing moderate sized R>L pleural effusions and airspace opacities. Suspect component of pulmonary edema. He tolerated intermittent Lasix dosing. (6) Acute exacerbation of congestive heart failure: Code(s): I50.9 - Heart failure, unspecified Status: Acute Assessment and Plan: Patient to BNP was 3000. Chest x-ray as mentioned above. Patient may have CHF exacerbation or possibly fluid overload from oliguric renal failure. As above. (7) Acute UTI: Code(s): N39.0 - Urinary tract infection, site not specified Status: Acute Assessment and Plan: UA noted. Urine culture growing Pseudomonas. Complicated UTI with chronic indwelling Newton that was changed out in ED. He has completed abx course. (8) Diabetes mellitus: Code(s): E11.9 - Type 2 diabetes mellitus without complications Status: Chronic Assessment and Plan: The patient's blood glucose was monitored with AccuCheks covering with sliding scale. Hypoglycemia protocol was available as needed. (9) Muscul
[2021-10-22 12:15] LABS: EDCOVIDSCREEN Negative (Negative)
[2021-10-22 13:03] LABS: Glucose Point of Care 225 mg/dl (65-105)
[2021-10-22 13:37] VITALS: PULSE 79; RESP 16
[2021-10-22 13:38] LABS: Glucose Point of Care 215 mg/dl (65-105)
[2021-10-22 16:38] LABS: Glucose Point of Care 123 mg/dl (65-105)
== END 2021-10-22 17:19 | DRG 871 ==
LOC: ANHED 15:05 → ANHIMU 16:36 → ANH2MED 10-17 17:49
PROVIDERS: Internal Medicine; Internal Medicine Nephrology; Student in an Organized Health Care Education/Training Program; Admitting Provider Internal Medicine; Emergency Provider Emergency Medicine; PCP Nurse Practitioner Family; Visit Provider Internal Medicine
DX: A41.9 Sepsis, unspecified organism (principal); J18.9 Pneumonia, unspecified organism; J96.01 Acute respiratory failure with hypoxia; N17.0 Acute kidney failure with tubular necrosis; G93.41 Metabolic encephalopathy; T83.511A Infection and inflammatory reaction due to indwelling urethral catheter, initial encounter; E87.2 Acidosis; I13.0 Hypertensive heart and chronic kidney disease with heart failure and stage 1 through stage 4 chronic kidney disease, or unspecified chronic kidney disease; N39.0 Urinary tract infection, site not specified; B96.5 Pseudomonas (aeruginosa) (mallei) (pseudomallei) as the cause of diseases classified elsewhere; I50.9 Heart failure, unspecified; E11.22 Type 2 diabetes mellitus with diabetic chronic kidney disease; N18.9 Chronic kidney disease, unspecified; K64.9 Unspecified hemorrhoids; R29.898 Other symptoms and signs involving the musculoskeletal system; Z20.822 Contact with and (suspected) exposure to COVID-19; R33.8 Other retention of urine; E11.65 Type 2 diabetes mellitus with hyperglycemia; N40.1 Benign prostatic hyperplasia with lower urinary tract symptoms; E78.5 Hyperlipidemia, unspecified; E86.0 Dehydration; Z66 Do not resuscitate; D63.1 Anemia in chronic kidney disease; Z87.891 Personal history of nicotine dependence; Z79.82 Long term (current) use of aspirin; Z79.4 Long term (current) use of insulin
CPT/HCPCS: 36415; 36600; 70450; 71045; 71046; 76775; 80048; 80053; 80069; 80076; 80202; 81001; 82010; 82140; 82274; 82436; 82550; 82570; 82607; 82728; 82746; 82805; 82948; 83036; 83540; 83550; 83605; 83735; 83880; 84100; 84133; 84145; 84156; 84300; 84439; 84443; 84480; 84484; 85014; 85018; 85025; 85027; 85610; 85730; 85999; 86140; 87040; 87077; 87086; 87088; 87186; 87426; 87804; 92610; 92611; 93005; 93970; 94002; 94003; 94640; 96365; 97110; 97161; 97530; 97535; 99285; A9270; C9803; J0456; J0692; J0696; J1815; J1940; J3370; J7030; J7040; J7042; J7050; U0003; U0005

== ENCOUNTER 2021-10-25 01:06 | Inpatient (IN) | payer MEDICARE, SELFPAY ==
[2021-10-25] VITALS (27 sets, daily range): BP systolic 99–156; BP diastolic 50–77; PULSE 81–100; RESP 20–29; TEMP 36.3–36.7; O2SAT 90–93; BMI 23.8
--- NOTE | ~2021-10-25 | XR_ITS ---
EXAMINATION: XR chest 1V portable INDICATION: Hypoxia TECHNIQUE: Portable AP chest at 0141 hours COMPARISON: 10/19/2021 FINDINGS: There are moderate-sized pleural effusions. There are airspace opacities of the mid and low er lung zones. There is no pneumothorax. The cardiomediastinal silhouette is stable. IMPRESSION: 1. Moderate-sized pleural effusions with interval worsening. 2. Airspace opacities of the mid and lower lung zones, consistent with atelectasis versus pneumonia. Reviewed, dictated and finalized at location A. IMPRESSION: 1. Moderate-sized pleural effusions with interval worsening. 2. Airspace opacities of the mid and lower lung zones, consistent with atelecta sis versus pneumonia.
--- NOTE | ~2021-10-25 | CT_ITS ---
EXAMINATION: CT chest abdomen pelvis wo con DATE: 10/25/2021 07:51 INDICATION: Acute on chronic hypoxic respiration. Abdominal pain. TECHNIQUE: Computed tomography (CT) of the chest, abdomen, and pelvis was performed without intraveno us contrast. Automated exposure control and iterative reconstruction technique were employed. The dos e-length product was 828.79 mGy-cm. COMPARISON: None FINDINGS: CHEST CT: Large bilateral pleural effusions. There is complete collapse of the right lower lobe and partial col lapse of the left lower lobe. Additional dependent atelectasis in the right middle and bilateral uppe r lobes. No evident airspace disease in the remaining aerated portions of the lungs. Heart size is no rmal. Small pericardial effusion. Atherosclerotic coronary artery calcifications and likely stenting along the left anterior descending coronary artery. Mildly aneurysmal ascending thoracic aorta measur ing up to 4.1 cm in maximal diameter. Mild likely reactive mediastinal lymphadenopathy with the large st lymph node measuring up to 1.2 cm in maximal short axis diameter at the AP window. A few subacute appearing healing posterior right rib fractures. Chronic appearing T11 compression fracture with nimco tional Schmorl's node the central aspect of the depressed superior endplate. ABDOMEN/PELVIS CT: There is retained barium throughout the colon from the prior modified swallow study performed one wee k prior. A few small nodular soft tissue densities along the posterior margin of the right hepatic lo be, the largest measuring 1.8 x 0.8 cm. Liver, gallbladder, spleen, pancreas and bilateral adrenal gl ands are normal. Bilateral nonobstructing nephrolithiasis measuring 6 mm in maximal diameter at the l ower pole of the left kidney and 2-3 mm at the lower pole of the right kidney. No bowel obstruction. A couple small bladder stones along with a Newton catheter bulb within the decompressed bladder. Small amount of ascites in the pelvis. No pathologically enlarged abdominal or pelvic lymphadenopathy. Mil d thoracolumbar dextrocurvature. Age-indeterminate but relatively recent-appearing L2 compression fra cture with 40% central vertebral body height loss. Moderate lumbar spondylosis. IMPRESSION: 1. Large bilateral pleural effusions associated atelectasis including right lower lobe collapse and n ear complete left lower lobe collapse. 2. Small pericardial effusion. 3. Mildly aneurysmal ascending thoracic aorta measuring up to 4.1 cm in maximal diameter. 4. Bilateral nonobstructing nephrolithiasis. 5. Small amount of ascites. 6. A couple small soft tissue density nodules along the posterior margin of the right hepatic lobe. C orrelate with any prior outside imaging. Otherwise would consider follow-up pre and postcontrast MRI or CT for further evaluation with clinically improved. 7. Age-indeterminate but relatively recent-appearing L2 compression fracture with a few subacute appe aring healing right rib fractures. Reviewed, dictated and finalized at location A. IMPRESSION: 1. Large bilateral pleural effusions associated atelectasis including right low er lobe collapse and near complete left lower lobe collapse. 2. Small pericardial effusion. 3. Mildly aneurysmal ascending thoracic aorta measuring up to 4.1 cm in maximal diameter. 4. Bilateral nonobstructing nephrolithiasis. 5. Small amount of ascites. 6. A couple small soft tissue density nodules along the posterior margin of the right hepatic lobe. Correlate with any prior outside imaging. Otherwise would consider follow-up pre and postcontrast MRI or CT for further evaluation with c linically improved. 7. Age-indeterminate but relatively recent-appearing L2 compression fracture wi th a few subacute appearing healing
--- NOTE | ~2021-10-25 | CT_ITS ---
EXAMINATION: CT brain wo con DATE: 10/25/2021 11:32 INDICATION: Altered mental status TECHNIQUE: Computed tomography (CT) of the head was performed without intravenous contrast. The dose- length product was 908.00 mGy-cm. Automated exposure control and iterative reconstruction technique w ere employed. COMPARISON: CT dated 10/15/2021 FINDINGS: Generalized atrophy. There are scattered moderate periventricular and subcortical white mat ter changes, most likely related to small vessel ischemic disease (microangiopathy). No midline shift . Basilar cisterns are patent. There is intracranial atherosclerosis. No acute intracranial hemorrhag e, infarction, mass or mass effect. Paranasal sinuses and mastoids are pneumatized. No depressed skul l fractures. IMPRESSION: 1. No acute intracranial abnormality. 2: Chronic age-related findings. Reviewed, dictated and finalized at location A.
--- NOTE | 2021-10-25 01:21 | PC.NURSE ---
sp02 97%, o2 decreased back to 2L/NC.
[2021-10-25 01:33] LABS: Base Excess ABG 0.6 mEq/l (+/-2.0); Fractional Inspired Oxygen 28 %; HCO3 ABG 24.7 mEq/l (22.0-26.0); Oxygen Content ABG 14.5 %vol (16.0-22.0); PCO2 ABG 37.5 mmHg (35.0-45.0); PO2 FiO2 Ratio Arterial Blood 1.76 %; Total Hemoglobin 12.2 g/dL (12.0-18.0); pH ABG 7.436 (7.350-7.450)
[2021-10-25 01:35] LABS: Oxygen Saturation ABG 86.4 % (95.0-100.0); Oxyhemoglobin 84.3 % THb (90.0-100.0); PO2 ABG 49.4 mmHg (80.0-100.0); Site Drawn LEFT RADIAL
[2021-10-25 01:36] LABS: Device NASAL CANNULA; Modified Allen's Test Unable to perform
[2021-10-25 01:44] LABS: Basophils Absolute Auto 0.1 K/mm3 (0.0-0.1); Basophils Percent Auto 0.5 % (0.2-1.2); Eosinophils Absolute Auto 0.3 K/mm3 (0-0.3); Eosinophils Percent Auto 1.8 % (0-4.4); Hematocrit 33.1 % (42.0-52.0); Hemoglobin 11.4 g/dL (14.0-18.0); Immature Granulocyte Absolute 0.09 K/mm3 (0.00-0.031); Immature Granulocyte Percent A 0.6 % (0-0.5); Lymphocytes Absolute Auto 0.89 K/mm3 (0.9-3.2); Lymphocytes Percent Auto 6.2 % (18.3-44.2); Mean Corpuscular HGB Conc 34.4 g/dl (32-36); Mean Corpuscular Hemoglobin 30.9 pg (26-34); Mean Corpuscular Volume 89.7 fl (80-100); Mean Platelet Volume 10.1 fl (7.4-10.4); Monocytes Absolute Auto 0.9 K/mm3 (0.1-0.6); Monocytes Percent Auto 6.1 % (2.6-8.5); Neutrophils Absolute Auto 12.1 K/mm3 (1.3-6.7); Neutrophils Percent Auto 84.8 % (45.5-73.1); Platelet Count Result 267 k/mm3 (150-375); Red Blood Count 3.69 M/mm3 (4.6-6.20); Red Cell Distribution Width 17.2 % (11.5-14.5); White Blood Count 14.3 K/mm3 (4.5-10.0)
[2021-10-25 01:57] LABS: Alanine Aminotransferase 9 U/L (6-50); Albumin Level 2.3 g/dL (3.5-5.1); Alkaline Phosphatase 164 U/L (38-126); Anion Gap 6 mmol/L (8-16); Aspartate Amino Transferase 14 U/L (17-59); Bilirubin,Total 0.6 mg/dL (0.2-1.3); Blood Urea Nitrogen 52 mg/dL (9-20); Calcium 7.3 mg/dL (8.4-10.2); Carbon Dioxide 27 mmol/L (22-30); Chloride 99 mmol/L (98-107); Estimated Glomerular Filt Rate 26; Glucose 377 mg/dL (65-110); Lactic Acid Reflex 1.4 mmol/L (0.7-2.0); Potassium 4.9 mmol/L (3.4-5.0); Sodium 132 mmol/L (137-145)
--- NOTE | 2021-10-25 01:58 | PC.NURSE ---
Note spo2 consistently 89% on 2L/NC. increased to 3L/NC. Unable to retreive urine from kidd hub.
[2021-10-25 02:01] LABS: Beta-Hydroxybutyrate/Acetoacetate 1.55 mmol/L (0.02-0.27)
[2021-10-25 02:10] LABS: Troponin I < 0.012 ng/mL (0.000-0.034)
--- NOTE | 2021-10-25 02:29 | PC.NURSE ---
Again attempt to obtain urine from catheter hub to no avail. Pt asleep on stretcher, awakens easily. Verbalizes yes and no to questions but will not respond to what his name is.
--- NOTE | 2021-10-25 02:45 | ECG_ITS ---
Measurements Intervals [place] Rate: 88 P: 49 ME: 128 QRS: -75 QRSD: 94 T: 34 QT: 383 QTc: 465 Interpretive Statements SINUS RHYTHM LEFT ANTERIOR FASCICULAR BLOCK LOW VOLTAGE- LIMB LEADS ANTEROSEPTAL INFARCT, AGE INDETERMINATE BASELINE ARTIFACT- I, II, III, AVR, V4-V5 ABNORMAL ECG Electronically Signed On 10-25-2021 6:56:24 CDT by Adolfo Damon D.O.
[2021-10-25 02:52] LABS: NT Pro B Type Natriuretic Pept 1390 pg/mL (5-100)
[2021-10-25] MEDS: LACTATED RINGERS 1,000 ML 999 ML IV CONT (03:10)
[2021-10-25] MEDS: INSULIN ASPART (*BKC) 100 UNITS/ML SUB-Q ×4 (03:11→18:27)
[2021-10-25] MEDS: cefTRIAXone 2 GM in SODIUM CHLORIDE 0.9% IV 100 ML 200 ML IVPB (03:11)
--- NOTE | 2021-10-25 03:26 | ED.AMS ---
HPI - Altered Mental Status General Chief Complaint: Altered Mental Status Stated Complaint: Altered, low O2, sob Time Seen by Provider: 10/25/21 01:15 History of Present Illness HPI narrative: 80-year-old male presenting from long-term with mental status, per long-term patient baseline is A & O x1 and he seems to be slightly more tired than usual, they have also noted that he seemed to need more oxygen. Related Data Home Medications Medication Instructions Recorded Confirmed Tresiba U-100 Insulin 12 unit SUBCUT HS 10/14/21 10/14/21 aspirin 81 mg PO DAILY 10/14/21 10/14/21 atorvastatin 40 mg PO HS 10/14/21 10/14/21 carvedilol 6.25 mg PO Q12H 10/14/21 10/14/21 levothyroxine 88 mcg PO DAILY 10/14/21 10/14/21 tamsulosin 0.8 mg PO DAILY 10/14/21 10/14/21 Allergies Allergy/AdvReac Type Severity Reaction Status Date / Time codeine Allergy Unknown Unknown Verified 10/25/21 01:37 Review of Systems Review of Systems: ROS unobtainable: Yes unobtainable due to medical condition and unobtainable due to mental status [facility] Past Medical History Medical History (Updated 10/25/21 @ 03:35 by Lily Randolph MD) Dementia Diabetes mellitus Social History Social History Smoking status: Former smoker Alcohol intake: current Drinks per week: 7 Substance use: never Spiritual care concerns: No Exam Narrative: EXAMINATION OF ORGAN SYSTEMS/BODY AREAS: Constitutional: Vital signs per nursing GENERAL: Resting comfortably HEAD: Normal with no signs of head trauma. EYES: EOMI, conjunctiva normal ENT: Hearing grossly intact LUNGS: Tachypnea, clear lungs HEART: [Regular rate and rhythm] ABD: [Soft], [nontender to palpation] EXT: No obvious deformities SKIN: [No rashes or lesions.] NEURO: [Alert and responds very occasionally to questions.] PSYCH: Flat affect Course Course Emergency Course: 80-year-old male with history of dementia presents from long-term with hypoxia and AMS. Vital signs notable for hypoxia compared to his usual baseline. Concerns include infection such as pneumonia, CO2 narcosis, DKA. Labs and imaging obtained, notable for elevated white count, creatinine, blood sugar without anion gap, ABG does not show CO2 retention, case discussed with hospitalist, x-ray does appear more infiltrates on the right compared to prior, he will be started on IV antibiotics and admitted. Vital Signs Vital signs: Vital Signs Temperature 98.0 F 10/25/21 01:07 Pulse Rate 88 10/25/21 01:07 Respiratory Rate 25 H 10/25/21 01:07 Blood Pressure 115/61 10/25/21 01:07 Pulse Oximetry 93 10/25/21 01:07 Temperature 98.0 F 10/25/21 01:07 Pulse Rate 88 10/25/21 01:31 Respiratory Rate 26 H 10/25/21 01:39 Blood Pressure 106/61 10/25/21 01:31 Pulse Oximetry 91 10/25/21 01:39 MDM - Altered Mental Status Lab Data Result diagrams: 10/25/21 01:30 10/25/21 01:30 Labs: Lab Results 10/25/21 10/25/21 10/25/21 Range/Units 01:30 01:30 01:30 WBC 14.3 H (4.5-10.0) K/mm3 RBC 3.69 L (4.6-6.20) M/mm3 Hgb 11.4 L (14.0-18.0) g/dL Hct 33.1 L (42.0-52.0) % MCV 89.7 (80-100) fl MCH 30.9 D (26-34) pg MCHC 34.4 (32-36) g/dl RDW 17.2 H (11.5-14.5) % Plt Count 267 (150-375) k/mm3 MPV 10.1 (7.4-10.4) fl Immature Gran % (Auto) 0.6 H (0-0.5) % Neut % (Auto) 84.8 H (45.5-73.1) % Lymph % (Auto) 6.2 L (18.3-44.2) % [place] % (Auto) 6.1 (2.6-8.5) % Eos % (Auto) 1.8 (0-4.4) % Baso % (Auto) 0.5 (0.2-1.2) % Lymph # (Auto) 0.89 L (0.9-3.2) K/mm3 [place] # (Auto) 0.9 H (0.1-0.6) K/mm3 Eos # (Auto) 0.3 (0-0.3) K/mm3 Baso # (Auto) 0.1 (0.0-0.1) K/mm3 Abs Immat Gran (auto) 0.09 H (0.00-0.031) K/mm3 Absolute Neuts (auto) 12.1 H (1.3-6.7) K/mm3 Absolute Nucleated RBC 0.0 (0.0-0.012) K/mm3 Nucleated RBC % 0.0 (0.0-0.2) % Sodium
--- NOTE | 2021-10-25 03:27 | PC.NURSE ---
IV antibiotics initiated and then stopped for blood culture collection. Note approx 7cc cloudy yellow urine in urinary tubing, collected and sent for UA. Preparing to collect 2nd blood culture and restart IV abx. Swab for covid completed.
[2021-10-25 03:30] LABS: Appearance Urine Slightly Cloudy (Clear); Bilirubin Urine 1+ (Negative); Blood Urine 1+ (Negative); Color Urine Yellow (Yellow); Glucose Urine UA 1+ mg/dL (Negative); Ketones Urine 1+ mg/dL (Negative); Leukocyte Esterase Ur 1+ LEU/UL (Negative); Nitrate Urine Negative (Negative); Protein Urine 2+ mg/dL (Negative); Specific Grav Ur 1.025 (1.001-1.035); Urobilinogen Urine 0.2 mg/dL (<2.0)
--- NOTE | 2021-10-25 03:38 | PM.IMHP ---
H&P: HPI History of Present Illness Date/Time: 10/25/21 03:38 Chief Complaint: respiratory distress, worsening AMS Narrative: 80-year-old male with past medical history of insulin-dependent type 2 diabetes mellitus, hypothyroidism, CHF, chronic indwelling Newton catheter and chronic hypoxic respiratory failure who presented to the ER via EMS from [facility] due to rapid respirations, worsening altered mental status and worsening hypoxia. The patient was reportedly on 2 L nasal cannula at the long term with a found the patient hypoxic. A placement 4 L nasal cannula and after 35 minutes with still hypoxic. When EMS arrived on the scene the patient was placed on 6 L nasal cannula and maintain sats of 90%. The patient is usually alert oriented x1. The patient will open his eyes and will say yes to questions but his answers are not necessarily appropriate. The patient does squeeze my hand after some delay. He otherwise is not following commands. He does grimace when his abdomen is palpated. On arrival to the ER the patient's glucose was noted to be 421. The patient had Newton catheter in place that had tea-colored cloudy urine. At the time of my evaluation the patient's urine appeared frankly purulent. Nursing staff exchanged the patient's Newton catheter when he arrived to the medical floor. Patient has been afebrile since arrival. The patient was hospitalized October 14 through the due to rectal bleeding, acute respiratory failure CHF exacerbation and pneumonia in his urine at that time grew out Pseudomonas. He was treated with cefepime, vanc and azithromycin on 10/21/2021. Review of Systems Review of Systems: ROS unobtainable: Yes unobtainable due to medical condition (dementia) [facility] Past Medical History Medical History (Updated 10/25/21 @ 07:07 by Yisel Camejo DO) BPH (benign prostatic hyperplasia) CHF (congestive heart failure) Chronic indwelling Newton catheter CKD (chronic kidney disease) stage 3, GFR 30-59 ml/min Dementia Diabetes mellitus Hyperlipemia Hypothyroidism Surgical History Surgical History (Updated 10/25/21 @ 03:47 by Yisel Camejo DO) Surgical history unknown Family History Family History Other Unknown family medical history Social History Social History (Updated 10/25/21 @ 03:56 by Yisel Camejo DO) Social History: Code status: DNR/DNI Healthcare POA: Suzan Cochran (niece) Smoking status: Former smoker Alcohol intake: current Drinks per week: 7 Substance use: never Living arrangements: long term Additional living arrangements comments: Occupation/Education: retired Spiritual care concerns: No Meds Home Medications and Allergies Home Medications Medication Instructions Recorded Confirmed Type Tresiba U-100 Insulin 12 unit SUBCUT HS 10/14/21 10/25/21 History aspirin 81 mg PO DAILY 10/14/21 10/25/21 History atorvastatin 40 mg PO HS 10/14/21 10/25/21 History levothyroxine 88 mcg PO DAILY 10/14/21 10/25/21 History tamsulosin 0.8 mg PO DAILY 10/14/21 10/25/21 History insulin aspart U-100 [Novolog 4 unit SUBCUT TIDWM #0 ml 10/22/21 10/25/21 Rx U-100 Insulin aspart] carvedilol 3.125 mg PO BID 10/25/21 10/25/21 History Allergies Allergy/AdvReac Type Severity Reaction Status Date / Time codeine Allergy Unknown Unknown Verified 10/25/21 01:37 Vital Signs Vital Signs - 24 hr 10/25/21 01:07 10/25/21 01:10 10/25/21 01:16 Temperature 98.0 F Pulse Rate 88 89 89 Respiratory Rate 25 H 29 H 27 H Blood Pressure 115/61 115/61 Pulse Oximetry 93 91 93 10/25/21 01:31 10/25/21 01:39 Temperature Pulse Rate 88 Respiratory Rate 26 H 26 H Blood Pressure 106/61 Pulse Oximetry 91 91 Exam Narrative: PHYSICAL EXAM: WEIGHT 69 kg BMI 23.8 General: Acutely ill-appearing, elderly, frail HEENT: Mucous membranes are dry, tongue is cracked,
[2021-10-25 03:51] LABS: Bacteria Urine Trace /hpf; Budding Yeast Urine Present /hpf; Mucus Urine Rare /lpf; RBC Urine >75 /hpf (0-2); WBC Clumps Urine Present /HPF; WBC Urine >75 /hpf
[2021-10-25 03:52] LABS: Add Urine Microscopic? YES
[2021-10-25 03:58] LABS: SARS-CoV-2 RNA PCR Negative
--- NOTE | 2021-10-25 04:54 | ADMGEN ---
This patient, Gianni Bynum, was admitted to [facility] Surg Room 305-02. Patient/family oriented to hospital policies and general routines including ID bracelet, bed and alarms, visiting hours, pain management, procedures, bathroom and other care routines, personal items, smoking policy, room service/diet, and visiting hours. Information on how to activate the Rapid Response Team has been discussed. Patient/Family are encouraged to report perceived risks to care and to ask questions if they do not understand what they are told or what they should do.
[2021-10-25] MEDS: SODIUM CHLORIDE 0.9% IV 1,000 ML 125 ML IV CONT (05:49)
[2021-10-25 06:01] LABS: Glucose Point of Care 397 mg/dl (65-105)
--- NOTE | 2021-10-25 10:25 | PM.IMPN ---
Progress Note: A&P Assessment and Plan (1) Sepsis: Qualifiers: Acute renal failure type: with acute tubular necrosis Sepsis acute organ dysfunction status: with acute organ dysfunction Sepsis type: sepsis due to unspecified organism Severe sepsis acute organ dysfunction type: acute renal failure Severe sepsis shock status: without septic shock Qualified Code(s): A41.9 - Sepsis, unspecified organism; R65.20 - Severe sepsis without septic shock; N17.0 - Acute kidney failure with tubular necrosis Code(s): A41.9 - Sepsis, unspecified organism Status: Acute Assessment and Plan: Present on admission with tachypnea, tachycardia and leukocytosis. Concern for pneumonia versus catheter associated UTI. He was just hospitalized here with urine growing out Pseudomonas. Currently remains on Levaquin. Urine and blood cultures collected and are pending. CT showing bilateral nonobstructing nephrolithiasis and small soft tissue densities noted in the margin of the right hepatic lobe of unclear significance. Continue IV antibiotics. Follow-up on culture results Spoke with family and discussed options including hospice. The family will discuss amongst themselves and let me know next steps. In the meantime, continue current care plan. (2) Acute on chronic respiratory failure: Qualifiers: Respiratory failure complication: hypoxia Qualified Code(s): J96.21 - Acute and chronic respiratory failure with hypoxia Code(s): J96.20 - Acute and chronic respiratory failure, unspecified whether with hypoxia or hypercapnia Status: Acute Assessment and Plan: Patient at last discharge was on 1 L of oxygen. On presentation, patient was comfortable appearing although he was tachypneic with ABG showed severe hypoxia. It was felt patient had acute respiratory failure. CT scan shows large bilateral pleural effusions which are increased in size from last admission. Stable on supplemental oxygen. Wean oxygen as tolerated. May need bilateral thoracentesis. (3) Altered mental status: Qualifiers: Altered mental status type: unspecified Qualified Code(s): R41.82 - Altered mental status, unspecified Code(s): R41.82 - Altered mental status, unspecified Status: Acute Assessment and Plan: Patient has underlying dementia. He is normally alert but mildly confused. Current condition related to the acute kidney injury and sepsis. No CT the brain performed which will order for today. Monitor for improvement. NPO for now (4) Acute kidney injury: Code(s): N17.9 - Acute kidney failure, unspecified Status: Acute Assessment and Plan: Patient last admission had a creatinine as high as 4.6 but with appropriate care, his creatinine was 1.2 at discharge. Creatinine 2.4 this admission. Discussed case with admitting provider and there was no evidence of Newton catheter obstruction. No hydronephrosis noted on CT scan. Possibly dehydration related. Consider ATN from the sepsis. Continue to monitor closely. Currently is on IV fluids (5) Pleural effusion: Code(s): J90 - Pleural effusion, not elsewhere classified Status: Acute Assessment and Plan: Patient with now large bilateral pleural effusions. He also noted to have soft tissue densities in the margin right hepatic lobe so would consider neoplasm in the differential. This all could be related to CHF and/or acute kidney injury. Consider thoracentesis when patient is more stable. He is currently receiving IV fluids due to his acute kidney injury. 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
[2021-10-25 11:42] LABS: Glucose Point of Care 268 mg/dl (65-105)
[2021-10-25 16:33] LABS: Glucose Point of Care 277 mg/dl (65-105)
[2021-10-25] MEDS: SODIUM CHLORIDE 0.9% IV 1,000 ML 100 ML IV CONT (20:09)
[2021-10-25] MEDS: INSULIN GLARGINE (*BKC) 100 UNITS/ML 10 UNITS SUB-Q (20:18)
[2021-10-25 21:18] LABS: Glucose Point of Care 350 mg/dl (65-105)
[2021-10-26] VITALS (10 sets, daily range): BP systolic 139–153; BP diastolic 50–94; PULSE 76–92; RESP 18–24; TEMP 36.1–36.3; O2SAT 90–98
[2021-10-26] MEDS: INSULIN ASPART (*BKC) 100 UNITS/ML SUB-Q ×2 (05:32→12:26)
[2021-10-26] MEDS: LEVOTHYROXINE SODIUM INJ 100 MCG/5 ML VIAL 44 MCG IV PUSH (05:34)
[2021-10-26] MEDS: SODIUM CHLORIDE 0.9% IV 1,000 ML 100 ML IV CONT ×2 (05:34→15:18)
[2021-10-26 05:43] LABS: Glucose Point of Care 308 mg/dl (65-105)
[2021-10-26 06:17] LABS: Basophils Absolute Auto 0.1 K/mm3 (0.0-0.1); Basophils Percent Auto 0.4 % (0.2-1.2); Eosinophils Absolute Auto 0.3 K/mm3 (0-0.3); Hematocrit 27.3 % (42.0-52.0); Hemoglobin 11.5 g/dL (14.0-18.0); Immature Granulocyte Absolute 0.08 K/mm3 (0.00-0.031); Immature Granulocyte Percent A 0.6 % (0-0.5); Lymphocytes Absolute Auto 1.25 K/mm3 (0.9-3.2); Lymphocytes Percent Auto 9.2 % (18.3-44.2); Mean Corpuscular HGB Conc 42.1 g/dl (32-36); Mean Corpuscular Hemoglobin 37.8 pg (26-34); Mean Corpuscular Volume 89.8 fl (80-100); Mean Platelet Volume 10.1 fl (7.4-10.4); Monocytes Absolute Auto 0.8 K/mm3 (0.1-0.6); Monocytes Percent Auto 5.7 % (2.6-8.5); Neutrophils Absolute Auto 11.2 K/mm3 (1.3-6.7); Neutrophils Percent Auto 82.1 % (45.5-73.1); Platelet Count Result 265 k/mm3 (150-375); Red Blood Count 3.04 M/mm3 (4.6-6.20); Red Cell Distribution Width 17.5 % (11.5-14.5); White Blood Count 13.6 K/mm3 (4.5-10.0)
[2021-10-26 06:35] LABS: Alanine Aminotransferase 8 U/L (6-50); Albumin Level 2.2 g/dL (3.5-5.1); Alkaline Phosphatase 153 U/L (38-126); Anion Gap 7 mmol/L (8-16); Aspartate Amino Transferase 23 U/L (17-59); Bilirubin,Total 0.5 mg/dL (0.2-1.3); Blood Urea Nitrogen 63 mg/dL (9-20); Calcium 7.3 mg/dL (8.4-10.2); Carbon Dioxide 22 mmol/L (22-30); Chloride 104 mmol/L (98-107); Estimated CRCL calculation 19 ml/min; Estimated Glomerular Filt Rate 24; Glucose 292 mg/dL (65-110); Phosphorus 4.1 mg/dL (2.5-4.5); Sodium 133 mmol/L (137-145)
[2021-10-26 11:46] LABS: Glucose Point of Care 203 mg/dl (65-105)
--- NOTE | 2021-10-26 13:18 | PM.IMPN ---
Progress Note: A&P Assessment and Plan (1) Sepsis: Qualifiers: Acute renal failure type: with acute tubular necrosis Sepsis acute organ dysfunction status: with acute organ dysfunction Sepsis type: sepsis due to unspecified organism Severe sepsis acute organ dysfunction type: acute renal failure Severe sepsis shock status: without septic shock Qualified Code(s): A41.9 - Sepsis, unspecified organism; R65.20 - Severe sepsis without septic shock; N17.0 - Acute kidney failure with tubular necrosis Code(s): A41.9 - Sepsis, unspecified organism Status: Acute Assessment and Plan: Present on admission with tachypnea, tachycardia and leukocytosis. Concern for pneumonia versus catheter associated UTI. He was just hospitalized here with urine growing out Pseudomonas. Currently remains on Levaquin. Urine Cx pending; BCx NGTD. CT showing bilateral nonobstructing nephrolithiasis and small soft tissue densities noted in the margin of the right hepatic lobe of unclear significance. Family did mention that the patient was noted to have lung nodules but refused to have them evaluated. Continue IV antibiotics. Follow-up on culture results Spoke with family again about hospice and all questions answered. The family will discuss but are strongly considering hospice. In the meantime, continue current care plan. (2) Acute on chronic respiratory failure: Qualifiers: Respiratory failure complication: hypoxia Qualified Code(s): J96.21 - Acute and chronic respiratory failure with hypoxia Code(s): J96.20 - Acute and chronic respiratory failure, unspecified whether with hypoxia or hypercapnia Status: Acute Assessment and Plan: Patient at last discharge was on 1 L of oxygen. On presentation, patient was comfortable appearing although he was tachypneic with ABG showed severe hypoxia. It was felt patient had acute respiratory failure. CT scan shows large bilateral pleural effusions which are increased in size from last admission. Stable on supplemental oxygen. Wean oxygen as tolerated. Okay to stop tele. (3) Altered mental status: Qualifiers: Altered mental status type: unspecified Qualified Code(s): R41.82 - Altered mental status, unspecified Code(s): R41.82 - Altered mental status, unspecified Status: Acute Assessment and Plan: Patient has underlying dementia. He is normally alert but mildly confused. Current condition related to the acute kidney injury and sepsis. CT the brain performed showing no acute findings. Some improvement today. Continue NPO for now (4) Acute kidney injury: Code(s): N17.9 - Acute kidney failure, unspecified Status: Acute Assessment and Plan: Patient last admission had a creatinine as high as 4.6 but with appropriate care, his creatinine was 1.2 at discharge. Creatinine 2.4 this admission. Discussed case with admitting provider and there was no evidence of Newton catheter obstruction. No hydronephrosis noted on CT scan. Possibly dehydration and/or ATN from the sepsis. Continue to monitor closely. Currently on IV fluids (5) Pleural effusion: Code(s): J90 - Pleural effusion, not elsewhere classified Status: Acute Assessment and Plan: Patient with now large bilateral pleural effusions. He also noted to have soft tissue densities in the margin right hepatic lobe so would consider neoplasm in the differential. Family mention that the patient is known to have lung nodules making metastatic lung cancer more concerning. This also could be related to CHF and/or acute kidney injury. Consider thoracentesis when patient is more stable. He is currently receiving IV fluids due to his acute kidney injury. 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
[2021-10-26 18:14] LABS: Glucose Point of Care 146 mg/dl (65-105)
[2021-10-26 20:47] LABS: Glucose Point of Care 162 mg/dl (65-105)
[2021-10-26] MEDS: INSULIN GLARGINE (*BKC) 100 UNITS/ML 14 UNITS SUB-Q (20:47)
[2021-10-27 01:02] LABS: Glucose Point of Care 173 mg/dl (65-105)
[2021-10-27] MEDS: SODIUM CHLORIDE 0.9% IV 1,000 ML 100 ML IV CONT (01:40)
[2021-10-27] MEDS: LEVOTHYROXINE SODIUM INJ 100 MCG/5 ML VIAL 44 MCG IV PUSH (05:33)
[2021-10-27 05:48] LABS: Glucose Point of Care 126 mg/dl (65-105)
[2021-10-27 06:00] VITALS: BP 154/81; PULSE 73; RESP 18; TEMP 36.2; O2SAT 97
[2021-10-27 06:27] LABS: Anion Gap 7 mmol/L (8-16); Blood Urea Nitrogen 60 mg/dL (9-20); Calcium 7.4 mg/dL (8.4-10.2); Carbon Dioxide 25 mmol/L (22-30); Chloride 109 mmol/L (98-107); Estimated CRCL calculation 24 ml/min; Estimated Glomerular Filt Rate 32; Glucose 118 mg/dL (65-110); Potassium 3.9 mmol/L (3.4-5.0); Sodium 141 mmol/L (137-145)
[2021-10-27 07:15] LABS: Hematocrit 32.5 % (42.0-52.0); Hemoglobin 10.4 g/dL (14.0-18.0); Mean Corpuscular Volume 87.4 fl (80-100); Mean Platelet Volume 9.7 fl (7.4-10.4); Platelet Count Result 235 k/mm3 (150-375); Red Blood Count 3.72 M/mm3 (4.6-6.20); Red Cell Distribution Width 17.1 % (11.5-14.5); White Blood Count 9.7 K/mm3 (4.5-10.0)
[2021-10-27 07:49] LABS: Glucose Point of Care 113 mg/dl (65-105)
[2021-10-27 08:00] VITALS: O2SAT 97
[2021-10-27 09:45] VITALS: O2SAT 97
[2021-10-27 11:24] LABS: Glucose Point of Care 101 mg/dl (65-105)
--- NOTE | 2021-10-27 12:07 | PCSTNOTE ---
Please refer to the Bedside Swallow Evaluation in the EMR. Please note, silent aspiration cannot be ruled out at bedside.
[2021-10-27 13:20] LABS: EDCOVIDSCREEN Negative (Negative)
--- NOTE | 2021-10-27 13:30 | PM.DS ---
DS: Admitting Diagnosis Discharge Date 10/27/21 Admitting Diagnosis Altered mental status DS: Discharge Diagnosis Discharge Diagnosis (1) Sepsis: Qualifiers: Acute renal failure type: with acute tubular necrosis Sepsis acute organ dysfunction status: with acute organ dysfunction Sepsis type: sepsis due to unspecified organism Severe sepsis acute organ dysfunction type: acute renal failure Severe sepsis shock status: without septic shock Qualified Code(s): A41.9 - Sepsis, unspecified organism; R65.20 - Severe sepsis without septic shock; N17.0 - Acute kidney failure with tubular necrosis Code(s): A41.9 - Sepsis, unspecified organism Status: Acute Assessment and Plan: Present on admission with tachypnea, tachycardia and leukocytosis. Concern for pneumonia versus catheter associated UTI. He was just hospitalized here with urine growing out Pseudomonas. He was treated with Levaquin. Urine Cx growing [place]; BCx NGTD. CT showing bilateral nonobstructing nephrolithiasis and small soft tissue densities noted in the margin of the right hepatic lobe of unclear significance. Family did mention that the patient was noted to have lung nodules but refused to have them evaluated. Spoke with family about options including hospice and all questions were answered. The family discussed it among themselves and have decided to proceed with hospice care. (2) Acute on chronic respiratory failure: Qualifiers: Respiratory failure complication: hypoxia Qualified Code(s): J96.21 - Acute and chronic respiratory failure with hypoxia Code(s): J96.20 - Acute and chronic respiratory failure, unspecified whether with hypoxia or hypercapnia Status: Acute Assessment and Plan: Patient at last discharge was on 1 L of oxygen. On presentation, patient was comfortable appearing although he was tachypneic with ABG showing severe hypoxia. It was felt patient had acute respiratory failure. CT scan shows large bilateral pleural effusions which have increased in size from last admission. He remained stable on supplemental oxygen. (3) Altered mental status: Qualifiers: Altered mental status type: unspecified Qualified Code(s): R41.82 - Altered mental status, unspecified Code(s): R41.82 - Altered mental status, unspecified Status: Acute Assessment and Plan: Patient has underlying dementia. He is normally alert but mildly confused. Altered mental status related to the acute kidney injury and sepsis. CT the brain performed showing no acute findings. He had improvement with rehydration. (4) Acute kidney injury: Code(s): N17.9 - Acute kidney failure, unspecified Status: Acute Assessment and Plan: Patient last admission had a creatinine as high as 4.6 but with appropriate care, his creatinine was 1.2 at discharge. Creatinine 2.4 this admission. Discussed case with admitting provider and there was no evidence of Newton catheter obstruction. No hydronephrosis noted on CT scan. Possibly dehydration and/or ATN from the sepsis. Creatinine did improve with above treatment. (5) Pleural effusion: Code(s): J90 - Pleural effusion, not elsewhere classified Status: Acute Assessment and Plan: Patient with now large bilateral pleural effusions. He also noted to have soft tissue densities in the margin right hepatic lobe so would consider neoplasm in the differential. Family mention that the patient has known lung nodules making metastatic lung cancer with malignant effusion more concerning. Effusion could also be related to CHF and/or acute kidney injury. 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
[2021-10-27 13:37] VITALS: BP 157/75; PULSE 70; RESP 16; TEMP 35.9; O2SAT 99
[2021-10-28 22:18] LABS: Legionella pneumophila Ag Ur Not Detected (Not Detected)
[2021-10-29 00:25] LABS: Pneumococcal Antigen Urine Not Detected (Not Detected)
== END 2021-10-27 15:30 | disposition hospice, inpatient (51) | DRG 871 ==
LOC: ANHED 03:32 → ANH3MEDSUR 10:29
PROVIDERS: Admitting Provider Internal Medicine; Emergency Provider Emergency Medicine; PCP Nurse Practitioner Family; Visit Provider Internal Medicine
DX: A41.9 Sepsis, unspecified organism (principal); J96.21 Acute and chronic respiratory failure with hypoxia; N17.0 Acute kidney failure with tubular necrosis; J18.9 Pneumonia, unspecified organism; I13.0 Hypertensive heart and chronic kidney disease with heart failure and stage 1 through stage 4 chronic kidney disease, or unspecified chronic kidney disease; J90 Pleural effusion, not elsewhere classified; Z20.822 Contact with and (suspected) exposure to COVID-19; E11.65 Type 2 diabetes mellitus with hyperglycemia; Z97.8 Presence of other specified devices; Z66 Do not resuscitate; Z51.5 Encounter for palliative care; E86.0 Dehydration; R41.82 Altered mental status, unspecified; Z87.891 Personal history of nicotine dependence; N40.0 Benign prostatic hyperplasia without lower urinary tract symptoms; F03.90 Unspecified dementia, unspecified severity, without behavioral disturbance, psychotic disturbance, mood disturbance, and anxiety; E03.9 Hypothyroidism, unspecified; E78.5 Hyperlipidemia, unspecified; R65.20 Severe sepsis without septic shock; E11.22 Type 2 diabetes mellitus with diabetic chronic kidney disease; N18.30 Chronic kidney disease, stage 3 unspecified; I50.9 Heart failure, unspecified; R91.1 Solitary pulmonary nodule; Z79.4 Long term (current) use of insulin; Z79.899 Other long term (current) drug therapy
CPT/HCPCS: 36415; 36600; 70450; 71045; 71250; 74176; 80048; 80053; 81001; 82010; 82805; 82948; 83605; 83735; 83880; 84100; 84484; 85025; 85027; 87040; 87086; 87088; 87106; 87426; 87449; 87899; 92610; 93005; 99291; C9803; J0456; J0696; J1815; J1956; J7030; J7120; U0003; U0005